=== PATIENT | male | born 1965 | race Two or more races ===

== ENCOUNTER 2016-09-01 20:04 | Observation (INO) | payer OTHER ==
[2016-09-01] MEDS ORDERED: NS 1,000 ML IV ONE (20:22)
--- NOTE | 2016-09-01 20:25 | EDPHY ---
H & P HPI/ROS: HPI CHIEF COMPLAINT: Left arm weakness, left leg weakness x6 days HISTORY OF PRESENT ILLNESS: This patient very pleasant 51-year-old male, significant past medical history for hypertension, originally from [facility] but now lives locally in [place] for approximately 6 days or starting on Thursday he noticed some left arm and left leg weakness. [place] the [place] airport and was noted to be dragging his left leg and having trouble with his left upper extremity. He fluid [facility] where he has been for the past 5 days with ongoing left upper extremity left lower extremity weakness. He was seen at [facility] today. Patient now presents by private vehicle with his family at bedside for ongoing left upper extremity weakness and left lower extremity weakness. Family reports that is left upper extremity left lower extremity weakness is about an about the same, not new. His son is at bedside for interpretation. Patient does not speak much Sierra Leonean. Past Medical History: Hypertension Past Surgical History: No surgical history Social History: Denies daily use drugs alcohol tobacco products Family History: Noncontributory ROS REVIEW OF SYSTEMS: A comprehensive 10 point review of systems is otherwise negative aside from elements mentioned in the history of present illness. Exam Constitutional appears well nontoxic triage nursing summary reviewed, vital signs reviewed, awake/alert. Eyes normal conjunctivae and sclera, EOMI, PERRLA. HENT normal inspection, atraumatic, moist mucus membranes, no epistaxis, neck supple/ no meningismus, no raccoon eyes. Respiratory clear to auscultation bilaterally, normal breath sounds, no respiratory distress, no wheezing. Cardiovascular rate normal, regular rhythm, no murmur, no edema, distal pulses normal. Gastrointestinal soft, non-tender, no rebound, no guarding, normal bowel sounds, no distension, no pulsatile mass. Genitourinary no CVA tenderness. Musculoskeletal no midline vertebral tenderness, full range of motion, no calf swelling, no tenderness of extremities, no meningismus, good pulses, neurovascularly intact. Skin pink, warm, & dry, no rash, skin atraumatic. Neurologic noted to be weak of the left upper extremity and left lower extremity, easily breaks with resistance of the left upper extremity left lower extremity. awake, alert and oriented x 3, AAOx3, motor intact, sensory intact, CN II-XII intact, normal cerebellar, normal vision, normal speech. Psychiatric normal mood/affect. Heme/Lymph/Immune no lymphadenopathy. Differential Diagnosis: Includes but is not limited to in a particular order acute stroke, stroke 6 days ago, hypertensive urgency, hypertensive emergency, brain bleed Medical Decision Making: Plan for this patient IV establishment, full blood work, choke reamer, EKG, troponin, CT head without contrast for stroke. This patient does have a left upper extremity left lower extremity weakness. However to 6-day-old. He is not a tPA candidate as he is outside the window. Re-evaluation: EKG interpretation by me on record in [employer] system. Impression time of EKG 2016 sinus rhythm. Sinus rhythm rate of 76, no acute ischemia. Normal intervals. CT scan of the head without IV contrast. The results of the study are this shows brain tumor . The study was read by Dr. Nolasco I viewed the images myself on the PACS system 2111: Spoke with Dr. Gongora: Neurosurgery. Recommends getting an MRI with and without contrast. Recommends IV Keppra, Admission. Further workup and will consult on tomorrow. 2213: Re-evaluation at this time patient is an MRI. I spoke with Dr. Mann agrees to admit this patient. Patient be admitted to neuro bed. Neurosurgery consult. They did want Keppra. Source: Patient, Family Constitutional: Initial Vital Signs Temperature (C) 36.7 C 09/01/16 20:20 Heart Rate 80 09/01/16 20:20 Respiratory Rate 16 09/01/16 20:20 Blood Pressure 163/101 H 09/01/16 20:20 O2 Sat (%) 93 09/01/16 20:20 O2 Delivery Mode Room Air Allergies/Adverse Reactions: No Known Allergies Allergy (Verified 09/01/16 20:36) Home Medications: Medication Instructions Recorded Acetaminophen [Tylenol 325mg (*)] 650 mg PO Q4HRS PRN #0 tab 09/02/16 Dexamethasone [Decadron 4 MG (*)] 4 mg PO Q6HRS #60 tab 09/02/16 Ondansetron Odt [Zofran Odt 4 mg 4 mg PO Q4HRS PRN #20 tab 09/02/16 (*)] levETIRAcetam [Keppra 500 mg (*)] 750 mg PO BID #60 tab 09/02/16 Medical Decision Making - Data Points Laboratory Results: Laboratory Results 09/01/16 20:20 09/01/16 20:20 09/01/16 20:16 POC Hgb 17.3 gm/dL gm/dL (13.7-17.5) POC Hct 51 % % (40-51) POC Sodium 138 mEq/L mEq/L (134-144) POC Potassium 3.9 mEq/L mEq/L (3.3-5.0) POC Chloride 101 mEq/L mEq/L (97-110) POC BUN 14 mg/dL mg/dL (7-23) POC Creatinine 0.8 mg/dL mg/dL (0.7-1.3) POC Glucose 118 mg/dL H mg/dL (70-100) Medications Given: Discontinued Medications Dexamethasone (Decadron Injection) 10 mg IVP ONCE ONE Stop: 09/01/16 23:28 Last Admin: 09/02/16 00:33 Dose: 10 mg Dexamethasone (Decadron) 4 mg PO Q6HRS [facility] Stop: 03/01/17 00:00 Last Admin: 09/02/16 11:27 Dose: 4 mg Sodium Chloride (Ns) 1,000 mls @ 0 mls/hr IV ONCE ONE; Wide Open PRN Reason: Protocol Stop: 09/01/16 20:23 Last Admin: 09/01/16 20:43 Dose: 1,000 mls Levetiracetam 1,000 mg/ Sodium (Chloride) 110 mls @ 440 mls/hr IV EDNOW ONE Stop: 09/01/16 21:24 Last Admin: 09/01/16 22:48 Dose: 110 mls Levetiracetam (Keppra) 750 mg PO BID [facility] Stop: 03/01/17 08:59 Last Admin: 09/02/16 08:21 Dose: 750 mg Point of Care Test Results: 09/01/16 20:16 POC Sodium 138 POC Potassium 3.9 POC Chloride 101 POC BUN 14 POC Creatinine 0.8 POC Glucose 118 H Departure - Departure Disposition: [facility] Acute Clinical Impression: Brain tumor Condition: Fair
[2016-09-01 20:30] LABS: % IMMATURE GRANULYOCYTES 0.2 % (0.0-1.1); ABSOLUTE IMMATURE GRANULOCYTES 0.02 10^3/uL (0.00-0.10); ADD DIFF? NO; ADD MORPH? NO; ADD SCAN? NO; ATYPICAL LYMPHOCYTE FLAG 0 (0-99); FRAGMENT RBC FLAG 0 (0-99); HEMATOCRIT 47.3 % (40.0-51.0); HEMOGLOBIN 16.3 g/dL (13.7-17.5); LEFT SHIFT FLG 0 (0-99); LIPEMIA HEMOLYSIS FLAG 90 (0-99); MEAN CELL HEMOGLOBIN 30.1 pg (27.9-34.1); MEAN CELL HEMOGLOBIN CONCENTR. 34.5 g/dL (32.4-36.7); MEAN CELL VOLUME 87.4 fL (81.5-99.8); MEAN PLATELET VOLUME 9.8 fL (8.7-11.7); PLATELET CLUMPS FLAG 30 (0-99); PLATELET COUNT 288 10^3/uL (150-400); RED BLOOD CELL COUNT 5.41 10^6/uL (4.40-6.38); RED CELL DISTRIBUTION WIDTH 13.4 % (11.5-15.2)
[2016-09-01 20:39] LABS: PROTIME(PATIENT) 13.1 SEC (12.0-15.0)
[2016-09-01 20:40] LABS: APTT 34.6 SEC (23.0-38.0)
[2016-09-01 20:43] LABS: ANION GAP 13 mEq/L (8-16); CALCIUM 9.3 mg/dL (8.5-10.4); CARBON DIOXIDE 21 mEq/l (22-31); CHLORIDE 104 mEq/L (97-110); CREATININE 0.8 mg/dL (0.7-1.3); GLOMERULAR FILTRATION RATE > 60; GLUCOSE 116 mg/dL (70-100); SODIUM 138 mEq/L (134-144)
[2016-09-01 20:54] LABS: TROPONIN I < 0.012 ng/mL (0-0.034)
[2016-09-01] MEDS ORDERED: levETIRAcetam 1,000 MG in NS 100 ML IV ONE (21:10)
[2016-09-01] MEDS ORDERED: GADOBUTROL 10 ML VIAL IVP ONE (21:31)
[2016-09-01] MEDS ORDERED: ONDANSETRON DISINTEGRATING 4 MG TAB PO PRN (22:19)
[2016-09-01] MEDS ORDERED: ACETAMINOPHEN 325 MG TAB PO PRN (22:19)
[2016-09-01] MEDS ORDERED: ONDANSETRON 4 MG/2 ML VIAL IVP PRN (22:19)
[2016-09-01] MEDS ORDERED: DEXAMETHASONE 10 MG/ML VIAL IVP ONE (23:27)
--- NOTE | 2016-09-01 23:41 | GHP ---
[f rep st] HISTORY AND PHYSICAL DATE OF ADMISSION: 09/01/2016 CHIEF COMPLAINT: Weakness, brain lesions. HISTORY OF PRESENT ILLNESS: The patient is a pleasant 51-year-old Italian- speaking male with hypertension presents with left arm and leg weakness for approximately 6 days. History is translated from his [id number], per his permission. He is originally from [facility] but lives in [place] with son. About 6 days ago, he was returning from [facility] when he noticed his left leg was dragging at the airport and difficulty lifting his left arm. This weakness has progressed, without any falls. No slurred speech or numbness/loss of sensation. Denies vision changes. Has lost a few pounds in the last week. No numbness or tingling. Had a posterior headache today which is new for him. REVIEW OF SYSTEMS: I completed a 10-point review of systems, negative except as noted in HPI. PAST MEDICAL HISTORY: Hypertension, tobacco use. PAST SURGICAL HISTORY: None. SOCIAL HISTORY: Smoked half a pack of cigarettes daily for 15 years. Drinks a beer daily. No illicits. Lives with his son and [id number] in [place], applying for a [employer] card. FAMILY HISTORY: Father has diabetes. MEDICATIONS: see medication reconciliation. ALLERGIES: None. PHYSICAL EXAM: VITAL SIGNS: Temperature 36.7, blood pressure 144/83, heart rate 70s, respirations 16, 93% on room air (initially blood pressure 163/101). GENERAL: Patient is lying in bed, in no acute distress. HEENT: PERRLA, EOMI. Oropharynx clear. CV: Regular rate and rhythm. No murmurs, gallops, or rubs. LUNGS: Clear to auscultation bilaterally. ABDOMEN: Soft, nontender, nondistended. Positive bowel sounds. : No suprapubic or CVA tenderness. MUSCULOSKELETAL: Weak left upper and lower extremity. NEUROLOGIC: 2 through 12 intact. Upgoing toes. +2 patellar reflex on the right, +1 on the left. PSYCHIATRIC: Alert and oriented x3. Very pleasant. IMAGING: EKG, personally reviewed by me: Normal sinus rhythm. CT scan, reviewed by me: Shows a right occipital lobe mass with prominent peritumoral edema and mass effect, with subfalcine herniation. MRI brain: Multiple ring-enhancing nodule areas are identified with central diminished signal intensity suggesting central necrosis. This is consistent with multifocal malignancy such as glioblastoma. Multiple unilateral metastatic foci appear much likely. The lesions are nearly contiguous, with significant mass effect and peritumoral edema. Mass effect with approximately 8 mm of [id number] shift of the midline. ASSESSMENT AND PLAN: 1. Multiple brain lesions: concern for primary malignancy such as glioblastoma. Dr. Paige spoke with Dr. Gongora and Neurosurgery will evaluate in the morning. Start seizure prophylaxis with Keppra and steroids for peritumoral edema. PT/OT. 2. Accelerated hypertension: Now normalized. Resume home medications. 3. Diet: Regular. 4. Deep venous thrombosis prophylaxis: Sequential compression devices. DISPOSITION: Patient warrants inpatient admission given acute left upper and lower extremity weakness. Requires NSGY evaluation. /[id number]/MODL MTDD
[2016-09-02] MEDS: DEXAMETHASONE 4 MG TAB PO SCH ×3 (00:42→11:27)
[2016-09-02 01:28] LABS: ALBUMIN 4.6 g/dL (3.5-5.0); BILIRUBIN,TOTAL 0.8 mg/dL (0.1-1.4); BILIRUBIN-CONJUGATED 0.5 mg/dL (0.0-0.5); BILIRUBIN-UNCONJUGATED 0.3 mg/dL (0.0-1.1); TOTAL PROTEIN 7.9 g/dL (6.3-8.2)
[2016-09-02 04:27] VITALS: RESP 92
[2016-09-02 07:24] VITALS: TEMP 98.3
[2016-09-02] MEDS ORDERED: LOSARTAN POTASSIUM 50 MG TAB PO SCH (09:00)
[2016-09-02] MEDS ORDERED: AMLODIPINE PO SCH (09:00)
[2016-09-02] MEDS ORDERED: levETIRAcetam 500 MG TAB PO SCH (09:00)
[2016-09-02] MEDS ORDERED: amLODIPine BESYLATE 5 MG TAB PO SCH (09:00)
[2016-09-02] MEDS ORDERED: LOSARTAN PO SCH (09:00)
--- NOTE | 2016-09-02 09:57 | GCON ---
[f rep st] CONSULTATION NEUROSURGERY CONSULTATION CHIEF COMPLAINT: Worsening left-sided weakness. HISTORY OF PRESENT ILLNESS: This is a 51-year-old male Lebanese male, who is recently back from a trip to [facility] when he started having worsening left-sided weakness over the last week. He speaks some French but most of my consultation was done through the help of his son translating. His son states that in the airport he was dragging his left foot and having some intermittent numbness and weakness in his left arm, as well. Patient states that he has also had some intermittent headaches as well as some blurry vision. Patient states that he also has had some blurred vision at times. His son states that he also noticed that there were some episodes of speech that did not make sense in context but were fluent. He has no history of any previous cancers or other tumors. The patient was just recently started on blood pressure medication but before that was not on any other medications. Neurosurgery was consulted after a CT scan showed at least 2 right sided occipital/parietal tumors causing edema and some shift of the brain. REVIEW OF SYSTEMS: All pertinent positive and negative review of systems are as stated in the HPI. All history obtained through translation by the son and by review of the electronic medical record due to language barrier. PAST MEDICAL HISTORY: Significant for hypertension and tobacco use. PAST SURGICAL HISTORY: Patient has no surgical history. SOCIAL HISTORY: Patient smoked a half pack of cigarettes for 15 years. He drinks a beer daily. He denies any other illicit drug use. He lives with his son and [id number]-htr in [place]. FAMILY HISTORY: His father has diabetes but is alive and well. No other family history of any brain tumors or other cancers that they know of. MEDICATIONS: Please see the medication reconciliation report. ALLERGIES: Patient has no known drug allergies. OBJECTIVE: VITAL SIGNS: Blood pressure 104/72, respiratory rate 14, O2 sat is 93% on room air, temperature is 36.8 degrees Celsius. CONSTITUTIONAL: Patient is alert and oriented x3, in no acute distress. He is well developed and well nourished. HEENT: Head is normocephalic, atraumatic. Eyes: Pupils are equal and react to light and accommodation. Extraocular muscles are intact. NECK: Supple with full range of motion. RESPIRATORY: Patient has normal work of breathing. NEUROLOGIC: Cranial nerves 2-12 are grossly intact. Tongue protrusion is midline. Palate rises symmetrically. Facial sensation is intact to light touch over the face, and there is no facial droop. Patient is conversing appropriately through his son who is translating for him and states that there are no speech problems. There is negative pronator drift. Bilateral upper extremities and lower extremities on my exam today are 5/5 and equal in strength in all muscle groups including deltoids, biceps, triceps, wrist extensors, flexors, interossei and histology manager, quadriceps, hamstrings, dorsiflexion, plantar flexion, and EHL. Sensation is intact to normal distribution throughout the body. ABDOMEN: There is no guarding. EXTREMITIES : There is no cyanosis or edema noted. Gait is not witnessed. Deep tendon reflexes are 2+ bilaterally in the patellar and biceps, brachioradialis, and Achilles. Exam is negative for clonus and Bond's. On Babinski, toes are downgoing. LABORATORY DATA: White blood cell count 8.35, red blood cell count 5.41, hemoglobin 16.3, hematocrit 47.3, platelets 288. INR 1.0, PT 13.1, APTT 34.6. Sodium is 138, potassium 4.0, chloride 104, anion gap 13, BUN 15, creatinine 0.8 , glucose 116. Troponin less than 0.12. DIAGNOSTIC IMAGING: A head CT was performed on September 01 that showed a right occipital lobe mass with associated prominent peritumoral edema and mass effect with subfalcine herniation noted. There is possible 2nd lesion in the area of the right thalamus. Differential would be multifocal primary brain malignancy versus metastatic disease. MRI would be helpful in further assessment. MRI of the brain was performed and shows: 1) Multiple ring-enhancing nodular areas identified with central diminished signal intensity suggesting central necrosis. The appearance is most consistent with multifocal malignancy such as glioblastoma. Multiple unilateral metastatic foci appear much less likely. The patient is not septic, and multiple abscesses seem very unlikely. 2) Mass effect and subfalcine herniation noted, as detailed above. Chest x-ray was performed and is negative for mass or lesion, shallow inspiration with basilar atelectasis is suspected. ASSESSMENT AND PLAN: This is a 51-year-old male with approximately a 1-week history of worsening left-sided weakness and possibly some vision changes, as well. MRI shows multiple right-sided occipital and parietal lesions suspicious for glioblastoma or other primary brain malignancy or metastases. At this time , we will obtain a CT of the chest, abdomen, and pelvis for further metastatic workup. Dr. Gongora also met with the patient and his family this morning and discussed at length the options at this time including a needle biopsy versus open biopsy with debulking and resection versus medical treatment with oncology. At this time, we are favoring an open biopsy/debulking of the right parietal lesion that is closest to the surface. We will use this for pathology to confirm what this tumor is and any treatment recommendations thereafter. Dr. Gongora discussed with the family at length the risk of possible neurological deficit, risk of stroke, bleeding,worsening symptoms, weakness, infection, and other permanent neurological deficits. The patient's family would like to return home and possibly come back for the surgery. I did explain to them that we would like to get as much workup as we can done while they are here prior to returning home, and will revisit going home after the CT of the chest, abdomen, and pelvis has been performed. If we did proceed with this surgery, it would most likely happen with Dr. Gongora this coming Thursday. For now, the patient may have a regular diet. He may be up with assistance as tolerated. We will obtain a CT of the chest, abdomen, and pelvis with contrast for further metastatic workup. We will continue the Decadron and Keppra for seizure prophylaxis and also for surrounding edema. Should there be any change in his neuromotor exam, please contact Neurosurgery. We will follow up with results of further imaging later today and proceed with plans for possible surgery later this week after further workup has been obtained. Thank you for this kind consultation. NEUROSURGERY ATTENDING NOTE I have met with the family and reviewed his images. He has a small lytic lesion in his pelvis with recommendation for MRI/bone scan. This would not change our current plan. 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 I have reviewed the films and plan with him and his son extensively today and discussed the plan with my partners. The plan is to proceed with a right parietal open biopsy and tumor debulking to obtain tissue diagnosis. They want to go home and have been cleared by Medicine for surgery. I have tentatively scheduled him for surgery in 3 days. He will be discharged home on dexamethasone and Keppra. They understand the risks of surgery (neurologic deficit, stroke, etc) and agree to proceed. Consents have been signed. His son Lee is the point of contact since the patient does not speak French ([phone] pgbs). /[id number]/MODL MTDD
[2016-09-02] MEDS ORDERED: IOPAMIDOL (ISOVUE-300) 100 ML BTL ONE (11:03)
--- NOTE | 2016-09-02 15:40 | PDDCSUM ---
Discharge Summary Discharge Summary: Dates of service 09/01-09/02/16 Discharge dx: # brain masses # cerebral edema # cerebral herniation # left arm/leg weakness Consultations: neurosurgery Procedures performed: Brain MRI, abd/chest CT Hospital course: 51 yo from [facility] presenting with left arm and leg weakness found to have multiple right sided brain lesions ? glioblastoma # brain masses: lesions in brain c/w malignancy vs less likely infection, appearance c/w glioblastoma. Plan for surgical resection. Abd/chest CT w/o clear other masses, though ? sacral lesion possibly c/w metastatic disease. After surgery patient will need f/u with oncology and should likely have screening colonoscopy as well. Started on empiric keppra for now # cerebral edema: with associated right to left shift, dc on dexamethasone, course to be determined per nsg # cerebrial herniation: as above # left arm/leg weakness: improving with steroids, cleared pt/ot DC home F/u Thursday for planned surgical intervention/tumor resection > 35 minutes spent in dc, more than half in coordination of care
[2016-09-02 16:10] VITALS: BP 143/82; PULSE 91; O2SAT 92
== END 2016-09-02 16:20 | disposition home or self-care (01) ==
LOC: INTOOBSV 22:13 → F2N 23:10
PROVIDERS: ADMIT Internal Medicine; ATTEND Internal Medicine
DX: G93.89 Other specified disorders of brain (principal); G93.6 Cerebral edema; G93.5 Compression of brain
CPT/HCPCS: 70450; 70553; 71010; 71260; 74177; 97161; G0378; 82947-QW; A9585; J1953; Q9967

== ENCOUNTER 2016-09-11 11:50 | Inpatient (IN) | payer OTHER ==
[~2016-09-11 11:50] MED LIST: BUPIVACAINE/EPI 0.25% 30 ML SDV ONE; GENTAMICIN SULFATE 80 MG/2 ML VIAL ONE; THROMBIN (BOVINE) 5,000 UNIT VIAL TP ONE
[2016-09-11] MEDS ORDERED: GADOBUTROL 10 ML VIAL IVP ONE (12:02)
[2016-09-11] MEDS ORDERED: LIDOCAINE 1% 2 ML INJ ONE (12:13)
[2016-09-11] MEDS ORDERED: ceFAZolin 2 GM/DEXTROSE 100 ML IV ONE (12:35)
[2016-09-11] MEDS ORDERED: PROPOFOL 200 MG/20 ML VIAL ONE (12:58)
[2016-09-11] MEDS ORDERED: ROCURONIUM 50 MG/5 ML VIAL ONE (13:00)
--- NOTE | 2016-09-11 13:25 | PDANEPAE ---
ANE History of Present Illness Craniotomy for brain tumor excision. Pt has headache, had blurry vision ANE Past Medical History - Cardiovascular History Hx Hypertension: Yes Hx Arrhythmias: No Hx Chest Pain: No Hx Coronary Artery / Peripheral Vascular Disease: No Hx CHF / Valvular Disease: No Hx Palpitations: No Cardiovascular History Comment: hx of htn not on meds currently. Patient reports he is now taking Amlodipine - Pulmonary History Hx COPD: No Hx Asthma/Reactive Airway Disease: No Hx Recent Upper Respiratory Infection: No Hx Oxygen in Use at Home: No Hx Sleep Apnea: No Sleep Apnea Screening Result - Last Documented: Positive Pulmonary History Comment: lele triggers. Patient smoked 2-3 cig/day x 5 years. stopped 1 year ago. - Neurologic History Hx Cerebrovascular Accident: No Hx Seizures: No Hx Dementia: No Neurologic History Comment: brain tumor currently. loss of vision on left side from tumor - Endocrine History Hx Diabetes: No - Renal History Hx Renal Disorders: No - Liver History Hx Hepatic Disorders: No - Neurological & Psychiatric Hx Hx Neurological and Psychiatric Disorders: No - Cancer History Hx Cancer: No - Congenital Disorder History Hx Congenital Disorders: No - GI History Hx Gastrointestinal Disorders: No - Other Health History Other Health History: none - Chronic Pain History Chronic Pain: Yes (headaches) - Surgical History Prior Surgeries: na ANE Review of Systems - Exercise capacity METS (RN): 4 METS ANE Patient History - Allergies Allergies/Adverse Reactions: No Known Allergies Allergy (Verified 09/01/16 20:36) - NPO status NPO Since - Liquids (Date): 09/11/16 NPO Since - Liquids (Time): 09:00 NPO Since - Solids (Date): 09/10/16 NPO Since - Solids (Time): 23:30 - Anes Hx Hx Anesthesia Complications (with details): No prior surgeries - Smoking Hx Smoking Status: Former smoker - Alcohol Use Alcohol Use: Occasionally (1 drink/week) - Family Anes Hx Family Anes Hx: neg - N/A Family Hx Anesthesia Complications: none ANE Labs/Vital Signs - Vital Signs Blood Pressure: 152/95 Heart Rate: 66 Respiratory Rate: 18 O2 Sat (%): 93 Height: 172.72 cm Weight: 73.4 kg ANE Physical Exam - Airway Neck exam: FROM Mallampati Score: Class 2 Mouth exam: normal dental/mouth exam - Pulmonary Pulmonary: clear to auscultation - ASA Status ASA Status: III ANE Anesthesia Plan Anesthesia Plan: general endotracheal anesthesia Lines/Monitors: arterial line
[2016-09-11] MEDS ORDERED: BACITRACIN 50,000 UNITS/10 ML SYR IRR ONE (13:35)
[2016-09-11] MEDS ORDERED: MIDAZOLAM 2 MG/2 ML VIAL IVP ONE (13:42)
[2016-09-11] MEDS ORDERED: THROMBIN (BOVINE) 5,000 UNIT VIAL TP ONE (14:00)
[2016-09-11] MEDS ORDERED: DEXAMETHASONE 4 MG/ML VIAL ONE ×3 (14:27)
[2016-09-11] MEDS ORDERED: levETIRAcetam 1,000 MG in NS 100 ML IV ONE (15:00)
[2016-09-11] MEDS ORDERED: MANNITOL 20% 100 GM/500 ML BAG IV ONE (15:17)
[2016-09-11 16:40] LABS: BASE EXCESS -4.5 mEq/L (-2.5-2.5); BICARBONATE 20 mEq/L (22-26); HEMOGLOBIN ABG 15.8 gm/dL (14.5-17.3); IONIZED CALCIUM 1.03 MMOL/L (1.12-1.30); MEASURED OXYGEN SATURATION 98 % (92-95); PCO2 35 mmHg (34-38); PO2 127 mmHg (65-75); SODIUM ABG 125 mEq/L (137-146); TCO2 21 mEq/L (23-27)
[2016-09-11 16:42] LABS: O2 CONCENTRATIION 50 % (0-100); P/F RATIO 254 RATIO
[2016-09-11] MEDS ORDERED: GENTAMICIN SULFATE 80 MG/2 ML VIAL ONE (17:24)
[2016-09-11 17:43] LABS: ANION GAP 10 mEq/L (8-16); CALCIUM 7.8 mg/dL (8.5-10.4); CARBON DIOXIDE 19 mEq/l (22-31); CHLORIDE 99 mEq/L (97-110); CREATININE 0.8 mg/dL (0.7-1.3); GLOMERULAR FILTRATION RATE > 60; GLUCOSE 129 mg/dL (70-100); POTASSIUM 5.5 mEq/L (3.5-5.2); SODIUM 128 mEq/L (134-144)
[2016-09-11] MEDS ORDERED: ONDANSETRON 4 MG/2 ML VIAL ONE (18:05)
[2016-09-11] MEDS ORDERED: LABETALOL HCL 5 MG/ML 20 ML MDV ONE (18:46)
[2016-09-11] MEDS: fentaNYL 100 MCG/2 ML INJ IVP PRN ×2 (19:05→19:15)
[2016-09-11] MEDS ORDERED: NALOXONE HCL 0.4 MG/ML INJ IVP PRN (19:10)
[2016-09-11] MEDS ORDERED: ONDANSETRON 4 MG/2 ML VIAL IVP PRN (19:10)
[2016-09-11] MEDS ORDERED: LABETALOL HCL 50 MG/10 ML SYR IVP PRN (19:10)
[2016-09-11] MEDS ORDERED: fentaNYL 100 MCG/2 ML INJ ONE (19:11)
--- NOTE | 2016-09-11 19:11 | POSTANESTH ---
Post Anesthetic Evaluation Cardiovascular Status: Similar to Pre-Op Cond Respiratory Status: Normal, Stable Level of Consciousness/Mental Status: Can Participate in Eval Pain Control: Adequate, Prn Tx Ordered Nausea/Vomiting Control: Adequate, Prn Tx Ordered Complications Possibly Related to Anesthesia: None Noted
[2016-09-11] MEDS ORDERED: ACETAMINOPHEN 325 MG TAB PO PRN (19:12)
--- NOTE | 2016-09-11 19:12 | POSTOPPROG ---
Post Op Note Date of Operation: 09/11/16 Surgeon: Tyree Lee Beekeeper Farmer: Madelyn Martinez, SAMEER Anesthesia: GET(General Endotracheal) Pre-op Diagnosis: right parietal brain tumor Post-op Diagnosis: same Indication: brain tumor Procedure: right parietal craniotomy for tumor resection with motor mapping Findings: successful brain tumor resection Inf/Abcess present in the surg proc area at time of surgery?: No EBL: 50-100 Complications: none Drains: Nba Steele
[2016-09-11] MEDS ORDERED: LACTULOSE 20 GM/30 ML UDCUP PO PRN (19:13)
[2016-09-11] MEDS ORDERED: MAGNESIUM HYDROXIDE 30 ML UDCUP PO PRN (19:13)
[2016-09-11] MEDS ORDERED: POLYETHYLENE GLYCOL 3350 17 GM PKT PO PRN (19:13)
[2016-09-11] MEDS ORDERED: MAG HYDROX/AL HYDROX/SIMETH 30 ML UDCUP PO PRN (19:13)
[2016-09-11] MEDS ORDERED: BISACODYL 10 MG SUPP PR PRN (19:13)
--- NOTE | 2016-09-11 19:23 | SOAPPROG ---
SOAP Progress Note Assessment/Plan: Assessment: POD#0 s/p right parietal crani for tumor resection Plan: - SBP < 140 overnight - ICU observation with q2h neuro checks - decadron taper over 7 days - MRI with contrast in AM - Keppra 750 BID - PT/OT/speech 09/11/16 19:20 Subjective: no current complaints Objective: Vital Signs Temp Pulse Resp BP Pulse Ox 36.7 C 66 12 132/94 H 99 09/11/16 12:23 09/11/16 13:41 09/11/16 19:11 09/11/16 19:10 09/11/16 19:11 Laboratory Results 09/11/16 17:15 AAOx3, speech clear and fluent (self pay representative) Right strength 5/5, left arm grossly 5/5 but prominent pronator drift sensation seems to be grossly intact - Pending Discharge Pending Discharge Within 24 Hours: No Pending Discharge Within 48 Hours: Yes Pending Discharge Date: 09/13/16 Pending Discharge Time: 11:00 ICD10 Worksheet Patient Problems: Problems Problem Status Onset Brain tumor Acute
[2016-09-11] MEDS: NS W/ 20 KCl/L 1,000 ML IV SCH (20:34)
[2016-09-11] MEDS: SENNOSIDES/DOCUSATE SODIUM TAB PO SCH (22:00)
[2016-09-11] MEDS: FAMOTIDINE 20 MG TAB PO SCH (22:00)
[2016-09-11] MEDS: levETIRAcetam 500 MG TAB PO SCH (22:00)
[2016-09-11] MEDS: HYDROCODONE/APAP 10/325 TAB PO PRN (22:27)
[2016-09-12] MEDS: DEXAMETHASONE 4 MG TAB PO SCH ×5 (00:54→18:09)
[2016-09-12 05:01] LABS: ANION GAP 11 mEq/L (8-16); CALCIUM 7.7 mg/dL (8.5-10.4); CARBON DIOXIDE 16 mEq/l (22-31); CHLORIDE 105 mEq/L (97-110); CREATININE 0.8 mg/dL (0.7-1.3); GLOMERULAR FILTRATION RATE > 60; GLUCOSE 143 mg/dL (70-100); POTASSIUM 5.1 mEq/L (3.5-5.2); SODIUM 132 mEq/L (134-144)
[2016-09-12 05:05] LABS: ADD DIFF? YES; ADD MORPH? NO; ADD SCAN? NO; ATYPICAL LYMPHOCYTE FLAG 0 (0-99); FRAGMENT RBC FLAG 10 (0-99); HEMATOCRIT 43.3 % (40.0-51.0); LEFT SHIFT FLG 30 (0-99); LIPEMIA HEMOLYSIS FLAG 90 (0-99); MEAN CELL HEMOGLOBIN 30.2 pg (27.9-34.1); MEAN CELL HEMOGLOBIN CONCENTR. 34.6 g/dL (32.4-36.7); MEAN CELL VOLUME 87.1 fL (81.5-99.8); MEAN PLATELET VOLUME 9.4 fL (8.7-11.7); PLATELET CLUMPS FLAG 20 (0-99); PLATELET COUNT 264 10^3/uL (150-400); RED BLOOD CELL COUNT 4.97 10^6/uL (4.40-6.38); RED CELL DISTRIBUTION WIDTH 13.4 % (11.5-15.2)
[2016-09-12 06:07] LABS: PLATELET ESTIMATE ADEQUATE (ADEQ)
--- NOTE | 2016-09-12 07:25 | SOAPPROG ---
SOAP Progress Note Assessment/Plan: Assessment: 51 yo male POD #1 s/p right parietal craniotomy for tumor resection with motor mapping doing well this AM. ongoing left arm weakness Plan: MRI brain this AM follow pathology PT/OT/ST Will keep LIZA in this AM and if output slows, will consider removing it later today. Plan for 7 day decadron taper. He is on 4Q6 currently, will go to 4Q8 tomorrow. Discussed with Dr. Lee. 09/12/16 07:22 09/12/16 07:30 09/12/16 07:31 Subjective: awake, alert, comfortable. Objective: Vital Signs Temp Pulse Resp BP Pulse Ox 36.6 C 68 12 126/84 H 96 09/11/16 19:45 09/12/16 06:00 09/12/16 06:00 09/12/16 06:00 09/12/16 06:00 Laboratory Results 09/12/16 04:25 09/12/16 04:25 09/11/16 09/12/16 09/13/16 05:59 05:59 05:59 Intake Total 2810 Output Total 2015 Balance 795 Neuro: A+Ox4 RUCKER to command PERRLA, speech clear left arm + Pronator drift and generalized weakness RUE and bilat LE have normal strength Dressing: CDI LIZA: 265ml ICD10 Worksheet Patient Problems: Problems Problem Status Onset Brain tumor Acute
[2016-09-12] MEDS ORDERED: *MD ORDERING ONLY-DEXAMETHASONE TAPER PO SCH (07:45)
[2016-09-12] MEDS: NS W/ 20 KCl/L 1,000 ML IV SCH (08:07)
[2016-09-12] MEDS: SENNOSIDES/DOCUSATE SODIUM TAB PO SCH ×2 (08:19→20:39)
[2016-09-12] MEDS: levETIRAcetam 500 MG TAB PO SCH ×2 (08:19→20:39)
[2016-09-12] MEDS: FAMOTIDINE 20 MG TAB PO SCH ×2 (08:19→20:39)
[2016-09-12] MEDS: HYDROCODONE/APAP 10/325 TAB PO PRN (10:17)
--- NOTE | 2016-09-12 10:24 | GOP ---
[f rep st] OPERATIVE REPORT DATE OF OPERATION: 09/11/2016 SURGEON: Tyree Lee MD NEUROSURGEON: Tyree Lee MD. FORMING DEPARTMENT END FINDER: SAMEER Whatley. ANESTHESIA: General endotracheal. 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 POSTOPERATIVE DIAGNOSIS: Intra-axial right parietal brain mass with multifocal distribution and ext ensive brain edema. PROCEDURE PERFORMED: 1. Right frontoparietal craniotomy. 2. Microsurgical gross total resection of posterior right parietal and anterior right parietal sepa rate intraparenchymal brain masses. 3. Use of Stealth stereotactic neuronavigation for volumetric gross total resection. 4. Use of the operative microscope. 5. Intraoperative motor mapping using strip electrode phase reversal as well as motor evoked potent ial stimulation. FINDINGS: Successful tumor resection. SPECIMENS: Right parietal brain masses. ESTIMATED BLOOD LOSS: 100 cc. INDICATIONS: The patient is a 51-year-old man from [facility] who presented about a week and half ago wi th significant left arm drift and some trouble walking over the past month. Scans revealed what mirta eared to be a multifocal contrast enhancing mass in the right parietal region involving the motor st rip of the posterior frontal lobe. He was seen by my partner, and was then scheduled for surgery wi th me today. We did consider doing awake craniotomy for motor mapping, but given that the patient d oes not speak Hungarian, this would be extremely complicated and probably not in the patient's best in [facility]. Therefore, we decided to do it with asleep motor mapping. DESCRIPTION OF PROCEDURE: After informed consent was obtained from the patient, the patient was bro ught to the operating room and was placed in supine position on the operating table. A formal time- out was performed, identifying the patient by name, medical record number, and date of . Preop erative antibiotics were given. The endotracheal tube was placed and general endotracheal anesthesi a was smoothly induced. The patient was given preoperative mannitol, Decadron, and Keppra. All mirta ropriate monitoring lines were placed by Anesthesia and all appropriate leads for the neurophysiolog ic monitoring and motor mapping were placed. Next, the patient's head was placed in the Pardo pins and turned toward the left side, exposing t he right parietal region. The Stealth was then registered to the scalp and checked for accuracy usi ng known surface landmarks. This was used to plan an upside-down U-shaped incision starting just an terior to the ear and extending into the occipital region. The hair was clipped and 20 cc of 0.25% Marcaine with epinephrine were infiltrated in the skin for hemostasis. The head was then prepped an d draped in the normal sterile fashion. Skin incision was made using a 10 blade. The subcutaneous tissues were dissected using monopolar el ectrocautery. Magdy clips were placed for hemostasis. The temporalis muscle was elevated slightly more superiorly and a single myocutaneous flap was retracted inferiorly. The Stealth was used to lo calize both tumors to be sure that we would have enough space around the craniotomy for both the mot or mapping and tumor resection. Once this was localized, 4 bur holes were placed using the perforat or and these were connected using the craniotome to form a roughly 5 x 10 cm oval shaped craniotomy covering the entire region. All bleeding was controlled with bipolar electrocautery and Gelfoam. A t this point, we decided to remove the posterior tumor first. The dura was opened in a cruciate fas hion over this tumor, and the area where it came to the surface was localized using the Stealth. Th e brain did look somewhat abnormal and grayish in this area. The operative microscope was then margie lopez on the field, and the remainder of the procedure was performed under high-power magnification. First, the elsi and the cortex were coagulated using bipolar electrocautery over the area where the t umor came to the surface. Next, circumferential fashion we were able to go around the tumor, dissec ting it carefully away from the normal brain tissue beneath. The ultrasonic aspirator was used to d ebulk internally the tumor and carry this around the circumference of the cavity, being sure to loca lize all normal tissue. It was sent for frozen section. 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 We c ontinued resecting the tumor until the cavity showed all normal brain tissue surrounding. Then all bleeding was controlled with bipolar electrocautery and the cavity was lined with Surgicel. At this point, we turned our attention to the more anterior placed tumor. The remainder of the dura was op ened in a cruciate fashion. The area anterior to where the tumor came to the surface, a 6 contact s trip electrode was placed. Using neurophysiologic MEP signals, we were able to find phase reversal in the area anterior to where the tumor came to the surface. The strip electrode was moved several times, confirming the correct positioning of the motor cortex. We next used bipolar stimulation ove r the same areas again to confirm that good MEP signals were being obtained in the left arm and thes e were reproducible. Once the motor cortex was mapped, again the microscope was brought on the fiel d and again the elsi and cortex were coagulated around the area where the tumor came to the surface. We then carefully dissected the tumor away from the normal brain tissue, especially anteriorly wher e it coursed into the motor cortex. The ultrasonic aspirator was again used to debulk the tumor and remove the tumor completely. After tumor removal, the cavity was inspected and it appeared as thou gh we had a gross total resection. Again, the cavity was copiously irrigated. The bleeding was con trolled with bipolar electrocautery and the cavity was lined with Surgicel. We did then used the bi polar stimulator again to assure that the MEP signals that we had seen previously were still present and they were stable from baseline. At this point, it appeared as though we had a gross total tumor resection of both lesions. Therefor e, the wound was copiously irrigated using gentamicin irrigation. The dura was closed using interru pted 4-0 Vicryl. A piece of dry Gelfoam was placed over the dural opening and the craniotomy flap w as plated back in place using Synthes titanium plates and screws. The temporalis muscle was tacked back superiorly to the periosteum and a 10-Barbadian LIZA drain was placed in the subgaleal space. The w ound was again copiously irrigated using bacitracin irrigation. The galea was closed using interrup fritz 2-0 Vicryl. The skin was closed using a running 4-0 Monocryl. The hair was washed. Sterile dr essings were placed. The patient was removed from the [facility], where he was awakened and extu bated, and transferred to the PACU in stable condition. There were no operative complications. I w as scrubbed and present for the entire procedure. All sponge and needle counts were correct at the end of the case. FLUIDS AND URINE OUTPUT: Per the Anesthesia record. DRAIN: Subgaleal LIZA. /[id number]/MODL
[2016-09-12] MEDS ORDERED: GADOBUTROL 10 ML VIAL IVP ONE (10:46)
--- NOTE | 2016-09-12 15:20 | GCON ---
[f rep st] CONSULTATION COSMETOLOGY INSTRUCTOR CONSULTATION REASON FOR ADMISSION: Status post resection of brain tumor. HISTORY OF PRESENT ILLNESS: The patient is a 51-year-old male without past medical history. 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 He underwent right parietal craniotomy for tumor resection with motor mapping. Currently he is resting comfortably. He is not currently i n any pain, no chest pain, pleuritic-type chest pain, or angina equivalent. No fever or night sweat s. Again. He is currently comfortable. PAST MEDICAL HISTORY: None. PAST SURGICAL HISTORY: None. ALLERGIES: No known allergies to medication. SOCIAL HISTORY: Previous heavy smoker, quit 5 years prior. Infrequent alcohol use. He has [employer] family support. MEDICATIONS: Prior, include dexamethasone and Keppra. PHYSICAL EXAMINATION: VITAL SIGNS: Blood pressure 138/85, pulse 68, respirations 12, temperature 3 6.7, oxygen saturation 94% on room air. GENERAL: He is a well-developed, well-nourished 51-year-ol d male, who is resting comfortably, in no acute distress. HEENT: Head is bandaged. Eyes are PERRL , EOMI. Throat shows no erythema or tonsillar hypertrophy. NECK: Supple. No cervical adenopathy. HEART: Regular rate and rhythm without murmurs, rubs, or gallops. LUNGS: Clear to auscultation. No wheeze or rhonchi. ABDOMEN: Soft, nontender. Bowel sounds are present in all 4 quadrants. E XTREMITIES: No clubbing, cyanosis, or edema. LABORATORIES: White count is 20,000, hemoglobin 15, hematocrit 43, platelet count is 264. Sodium 1 32, potassium 5.1, chloride 105, CO2 16, BUN 29, creatinine 0.8, and glucose is 143. IMPRESSION: 1. Brain tumor. 2. Status post right parietal craniotomy for tumor resection. 3. Pain, well controlled. RECOMMENDATIONS: 1. Continue current Decadron taper. 2. DVT and PE prophylaxis. Holding anticoagulation for now. 3. Stress ulcer prophylaxis. 4. Adequate nutrition. 5. Adequate pain control. 6. PT and OT. 7. Speech to see. /[id number]/MODL
[2016-09-12] MEDS ORDERED: LABETALOL HCL 5 MG/ML 20 ML MDV IVP ONE (15:45)
[2016-09-12] MEDS ORDERED: LABETALOL HCL 5 MG/ML 20 ML MDV IVP PRN (15:46)
[2016-09-12] MEDS: LABETALOL HCL 5 MG/ML 20 ML MDV IVP PRN (20:40)
[2016-09-13] MEDS: DEXAMETHASONE 4 MG TAB PO SCH ×4 (00:55→21:01)
[2016-09-13] MEDS: HYDROCODONE/APAP 10/325 TAB PO PRN ×3 (05:21→21:01)
[2016-09-13] MEDS: LABETALOL HCL 5 MG/ML 20 ML MDV IVP PRN ×2 (05:22→10:12)
--- NOTE | 2016-09-13 09:23 | NEUSURGPN ---
Date of Surgery: 09/11/16 Post Op Day: 2 Assessment/Plan: Assessment/Plan: Assessment: 51 yo male POD #1 s/p right parietal craniotomy for tumor resection with motor mapping doing well this AM. ongoing left arm weakness [id number] 170 out yesterday Pt has large post operative epidural hematoma on repeat CT but exam is stable and doesn't appear to have any symptoms at this time. we will leave drain in at this and continue to watch closely, if he were to decline we would take to OR for evac of hematoma. Plan: follow pathology, pending PT/OT/ST Will keep LIZA for now. Plan for 7 day decadron taper. He is on 4Q6 currently, will go to 4Q8 tomorrow. Discussed with Dr. Lee. Subjective: awake, alert, comfortable. Neuro: A+Ox4 RUCKER to command PERRLA, speech clear left arm + Pronator drift and generalized weakness RUE and bilat LE have normal strength incision cdi - Physician Discussed Patient with : [facility] Physical Exam - Vitals, I&O, Labs I and O 09/12/16 09/13/16 09/14/16 05:59 05:59 05:59 Intake Total 2810 1829 Output Total 2014 1269 Balance 795 559 Weight 73.4 kg Intake: Oral (ml) 1000 1450 IV Intake (ml) 1100 379 IV Infused (ml) 710 NS W/ 20 KCl/L 1,000 ml @ 710 100 mls/hr IV CONT CHERISE Rx#:[id number] Output: Urine (ml) 1650 1100 Catheter 1650 Urinal 1100 Estimated Blood Loss (ml) 100 LIZA Drain Output (ml) 265 170 Head 265 170 Other: Number of Voids Toilet 1 Number of Stools Toilet 1 Vital Signs Temp Pulse Resp BP Pulse Ox 36.5 C 64 9 L 112/71 92 09/12/16 21:00 09/13/16 06:00 09/13/16 06:00 09/13/16 06:00 09/13/16 06:00 Laboratory Results 09/12/16 04:25 09/12/16 04:25 ICD10 Worksheet Patient Problems: Problems Problem Status Onset Brain tumor Acute
--- NOTE | 2016-09-13 09:23 | PDINTPN ---
Process Control Specialist Progress Note Assessment/Plan: Assessment: * Brain tumor * Status post craniotomy with resection-path pending * Pain-controlled Plan: CONCRETE HANDLER Likely transfer to floor soon Subjective: Sitting up in chair. Comfortable Objective: Vital Signs Temp Pulse Resp BP Pulse Ox 36.5 C 64 9 L 112/71 92 09/12/16 21:00 09/13/16 06:00 09/13/16 06:00 09/13/16 06:00 09/13/16 06:00 Laboratory Results 09/12/16 04:25 09/12/16 04:25 09/12/16 09/13/16 09/14/16 05:59 05:59 05:59 Intake Total 2809 1829 Output Total 2014 1269 Balance 795 559 Physical Exam - Physical Exam General Appearance: WD/WN, alert, no apparent distress EENT: PERRL/EOMI, normal ENT inspection Neck: non-tender, full range of motion, supple, normal inspection Respiratory: chest non-tender, lungs clear, normal breath sounds Cardiac/Chest: normal peripheral pulses, regular rate, rhythm Peripheral Pulses: 2+: carotid (R), carotid (L), femoral (R), femoral (L), dorsalis-pedis (R), dorsalis-pedis (L) Abdomen: normal bowel sounds, non-tender, soft Male Genitalia: deferred Rectal: deferred Skin: normal color, warm/dry Extremities: normal range of motion, non-tender, normal inspection, normal capillary refill ICD10 Worksheet Patient Problems: Problems Problem Status Onset Brain tumor Acute
[2016-09-13] MEDS: levETIRAcetam 500 MG TAB PO SCH ×2 (10:10→21:01)
[2016-09-13] MEDS: SENNOSIDES/DOCUSATE SODIUM TAB PO SCH ×2 (10:12→21:01)
[2016-09-13] MEDS: FAMOTIDINE 20 MG TAB PO SCH ×2 (10:12→21:01)
[2016-09-14] MEDS: LABETALOL HCL 5 MG/ML 20 ML MDV IVP PRN ×3 (00:12→06:00)
[2016-09-14] MEDS ORDERED: hydrALAZINE 20 MG/ML VIAL IVP PRN ×2 (06:13→06:49)
[2016-09-14] MEDS ORDERED: ONDANSETRON 4 MG/2 ML VIAL IVP PRN (06:14)
--- NOTE | 2016-09-14 08:11 | NEUSURGPN ---
<Srikanth Weiner R - Last Filed: 09/14/16 08:06> Date of Surgery: 09/11/16 Post Op Day: 3 Assessment/Plan: Assessment/Plan: Assessment: 51 yo male POD #3 s/p right parietal craniotomy for tumor resection with motor mapping doing well this AM. ongoing left arm weakness Pt has large post operative epidural hematoma on repeat CT. Exam remained stable until this am but has had increased headaches and nausea overnight and has worsening weakness on the left. Plan: Repeat CT this AM, likely to OR for evacuation of hematoma later today. NPO follow pathology, pending PT/OT/ST Plan for 7 day decadron taper. currently 4mg q[address] Lee. Subjective: awake, talking, increased headaches and nausea overnight Neuro: A+Ox4 RUCKER to command PERRLA, speech clear unable to lift left arm and left leg this am RUE and RLE have normal strength incision cdi JPx1 - Physician Discussed Patient with : [facility] Physical Exam - Vitals, I&O, Labs I and O 09/13/16 09/14/16 09/15/16 05:59 05:59 05:59 Intake Total 1829 750 Output Total 1270 540 Balance 559 210 Intake: Oral (ml) 1450 750 IV Intake (ml) 379 Output: Urine (ml) 1100 400 Urinal 1100 400 Emesis (ml) 100 LIZA Drain Output (ml) 170 40 Head 170 40 Other: Output Comment Urinal per family Number of Voids Incontinence 1 Toilet 1 3 1 Urinal 1 Number of Stools Toilet 1 1 Vital Signs Temp Pulse Resp BP Pulse Ox 36.7 C 62 16 151/85 H 96 09/14/16 07:30 09/14/16 07:30 09/14/16 07:30 09/14/16 07:30 09/14/16 07:30 Laboratory Results 09/12/16 04:25 09/12/16 04:25 ICD10 Worksheet Patient Problems: Problems Problem Status Onset Brain tumor Acute <Tyree Lee - Last Filed: 09/14/16 11:16> Assessment/Plan: STAFF ADDENDUM: Patient is clearly more lethargic today with headache and N/V with increased left sided weakness. Not sure if this could be just the postop vasogenic edema vs. the epidural hematoma which until now has seemed to be asymptomatic. I will take him to evacuate the epidural today and see if this will improve the exam. We also may need to increase his steroids for the short term. I discussed this with the patient and family and they agree to surgical evacuation. [facility] Physical Exam - Vitals, I&O, Labs I and O 09/13/16 09/14/16 09/15/16 05:59 05:59 05:59 Intake Total 1829 750 Output Total 1270 540 Balance 559 210 Intake: Oral (ml) 1450 750 IV Intake (ml) 379 Output: Urine (ml) 1100 400 Urinal 1100 400 Emesis (ml) 100 LIZA Drain Output (ml) 170 40 Head 170 40 Other: Output Comment Urinal per family Number of Voids Incontinence 1 Toilet 1 3 1 Urinal 1 Number of Stools Toilet 1 1 Vital Signs Temp Pulse Resp BP Pulse Ox 36.8 C 65 11 L 142/86 H 95 09/14/16 09:37 09/14/16 10:00 09/14/16 10:00 09/14/16 10:00 09/14/16 10:00 Laboratory Results 09/12/16 04:25 09/12/16 04:25
[2016-09-14] MEDS: FAMOTIDINE 20 MG TAB PO SCH ×2 (08:12→20:44)
[2016-09-14] MEDS: SENNOSIDES/DOCUSATE SODIUM TAB PO SCH ×2 (08:12→20:43)
[2016-09-14] MEDS: levETIRAcetam 500 MG TAB PO SCH ×2 (08:12→20:44)
--- NOTE | 2016-09-14 08:54 | PDINTPN ---
Senior Logistics Manager Progress Note Assessment/Plan: Assessment/Plan: * Brain tumor * Status post craniotomy with resection-path pending. New upper extremity weakness. -to OR today * Pain-controlled Subjective: Resting comfortably. New upper extremity weakness Objective: Vital Signs Temp Pulse Resp BP Pulse Ox 36.7 C 62 16 151/85 H 96 09/14/16 07:30 09/14/16 07:30 09/14/16 07:30 09/14/16 07:30 09/14/16 07:30 Laboratory Results 09/12/16 04:25 09/12/16 04:25 09/13/16 09/14/16 09/15/16 05:59 05:59 05:59 Intake Total 1829 750 Output Total 1270 540 Balance 559 210 Physical Exam - Physical Exam General Appearance: alert, no apparent distress EENT: PERRL/EOMI, normal ENT inspection, pharynx normal, TMs normal Neck: non-tender, full range of motion, supple, normal inspection Respiratory: chest non-tender, lungs clear, normal breath sounds Cardiac/Chest: normal peripheral pulses, regular rate, rhythm Peripheral Pulses: 2+: carotid (R), carotid (L), femoral (R), femoral (L), dorsalis-pedis (R), dorsalis-pedis (L) Abdomen: normal bowel sounds, non-tender, soft Male Genitalia: deferred Rectal: deferred Skin: normal color, warm/dry Neuro/Psych: alert ICD10 Worksheet Patient Problems: Problems Problem Status Onset Brain tumor Acute
[2016-09-14] MEDS ORDERED: DEXAMETHASONE 4 MG TAB PO SCH (09:00)
[2016-09-14] MEDS ORDERED: LIDO/EPI 1% **Not for Epidural 20 ML MDV ONE (09:47)
[2016-09-14] MEDS ORDERED: THROMBIN (BOVINE) 5,000 UNIT VIAL TP ONE (09:47)
[2016-09-14] MEDS ORDERED: BACITRACIN 50,000 UNITS/10 ML SYR IRR ONE ×2 (09:47→12:05)
[2016-09-14] MEDS ORDERED: ceFAZolin 2 GM/DEXTROSE 100 ML IV ONE ×2 (11:00→11:37)
[2016-09-14] MEDS ORDERED: THROMBIN (BOVINE) 20,000 UNIT VIAL TP ONE (11:01)
[2016-09-14] MEDS ORDERED: PROPOFOL 200 MG/20 ML VIAL ONE ×2 (11:02→11:58)
[2016-09-14] MEDS ORDERED: fentaNYL 100 MCG/2 ML INJ ONE ×2 (11:03→12:27)
[2016-09-14] MEDS ORDERED: SURGIFLO MATRIX KIT WITH THROMBIN TP ONE (11:15)
[2016-09-14] MEDS ORDERED: REMIFENTANIL HCL 1 MG VIAL ONE (11:52)
[2016-09-14] MEDS ORDERED: ROCURONIUM 50 MG/5 ML VIAL ONE ×2 (12:06)
[2016-09-14] MEDS ORDERED: DEXAMETHASONE 4 MG/ML VIAL ONE (12:18)
[2016-09-14] MEDS ORDERED: ONDANSETRON 4 MG/2 ML VIAL ONE (12:18)
[2016-09-14] MEDS ORDERED: epHEDrine SULFATE 10 MG/ML SYR ONE (12:20)
[2016-09-14] MEDS ORDERED: SUGAMMADEX SODIUM 200 MG/2 ML VIAL IVP ONE (12:21)
[2016-09-14] MEDS ORDERED: NALOXONE HCL 0.4 MG/ML INJ IVP PRN (12:37)
--- NOTE | 2016-09-14 12:37 | PDANEPAE ---
ANE Past Medical History - Cardiovascular History Hx Hypertension: Yes Hx Arrhythmias: No Hx Chest Pain: No Hx Coronary Artery / Peripheral Vascular Disease: No Hx CHF / Valvular Disease: No Hx Palpitations: No Cardiovascular History Comment: hx of htn not on meds currently. Patient reports he is now taking Amlodipine - Pulmonary History Hx COPD: No Hx Asthma/Reactive Airway Disease: No Hx Recent Upper Respiratory Infection: No Hx Oxygen in Use at Home: No Hx Sleep Apnea: Yes Sleep Apnea Screening Result - Last Documented: Positive Pulmonary History Comment: lele triggers. Patient smoked 2-3 cig/day x 5 years. stopped 1 year ago. - Neurologic History Hx Cerebrovascular Accident: No Hx Seizures: No Hx Dementia: No Neurologic History Comment: brain tumor currently. loss of vision on left side from tumor - Endocrine History Hx Diabetes: No - Renal History Hx Renal Disorders: No - Liver History Hx Hepatic Disorders: No - Neurological & Psychiatric Hx Hx Neurological and Psychiatric Disorders: No - Cancer History Hx Cancer: No - Congenital Disorder History Hx Congenital Disorders: No - GI History Hx Gastrointestinal Disorders: No - Other Health History Other Health History: none - Chronic Pain History Chronic Pain: Yes (headaches) - Surgical History Prior Surgeries: na ANE Review of Systems - Exercise capacity METS (RN): 4 METS ANE Patient History - Allergies Allergies/Adverse Reactions: No Known Allergies Allergy (Verified 09/01/16 20:36) - Home Medications Home medications: home medication list seen and reviewed - NPO status NPO Status: no food or drink >8 hours NPO Since - Liquids (Date): 09/14/16 NPO Since - Liquids (Time): 00:10 NPO Since - Solids (Date): 09/14/16 NPO Since - Solids (Time): 00:10 - Anes Hx Anes Hx: post operative cognitive dysfunction - Smoking Hx Smoking Status: Former smoker - Alcohol Use Alcohol Use: Occasionally (1 drink/week) - Family Anes Hx Family Hx Anesthesia Complications: none ANE Labs/Vital Signs - Labs Result Diagrams: 09/12/16 04:25 09/12/16 04:25 - Vital Signs Blood Pressure: 142/86 Heart Rate: 65 Respiratory Rate: 11 O2 Sat (%): 95 Height: 172.72 cm Weight: 73.4 kg ANE Physical Exam - Airway Mallampati Score: Class 2 Mouth exam: small mouth opening - Pulmonary Pulmonary: no respiratory distress - Cardiovascular Cardiovascular: regular rate and rhythym - ASA Status ASA Status: IV, E ANE Anesthesia Plan Anesthesia Plan: general endotracheal anesthesia Lines/Monitors: arterial line (anesthesia preop eval completed at 1040 09/14/16) Urgent/Emergent Case: Anes eval completed preop but documented later for safe timely pt care
--- NOTE | 2016-09-14 13:22 | POSTOPPROG ---
Post Op Note Date of Operation: 09/14/16 Surgeon: Tyree Lee Electro Tech: Arpita Gloria Anesthesiologist: Andrew Mills Anesthesia: GET(General Endotracheal) Pre-op Diagnosis: epidural hematoma Post-op Diagnosis: epidural hematoma Indication: left sided weakness Procedure: revision craniotomy and evacuation of epidural space Inf/Abcess present in the surg proc area at time of surgery?: No Depth: Organ Space EBL: 50-100 Drains: Nba Steele
[2016-09-14] MEDS ORDERED: SODIUM Cl 3% 500 ML IV SCH (13:30)
--- NOTE | 2016-09-14 13:57 | NEUSURGPN ---
Date of Surgery: 09/14/16 Post Op Day: 0 Assessment/Plan: Assessment/Plan: Assessment: 51 yo male POD0 for craniotomy revision and evacuation of EDH and POD #3 s/p right parietal craniotomy for tumor resection with motor mapping doing well this AM. ongoing left arm weakness, but improved overall left sided weakness from prior to revision surgery. Plan: SBP<140 NS 1.5% @75ml/hr for goal 145-150 decadron 4mg q6h repeat CT later today remove dressing POD#1 JPx1 to full suction. follow pathology, pending PT/OT/ST Discussed with Dr. Lee. Subjective: awake, talking, increased headaches and nausea overnight Neuro: A+Ox4 RUCKER x4 to command PERRLA, speech clear antigravity left side. left arm weakness and proprioception difficulties persist. RUE and RLE have normal strength incision cdi JPx1 - Physician Discussed Patient with : [facility] Physical Exam - Vitals, I&O, Labs I and O 09/13/16 09/14/16 09/15/16 05:59 05:59 05:59 Intake Total 1829 750 Output Total 1270 540 Balance 559 210 Weight 73.4 kg Intake: Oral (ml) 1450 750 IV Intake (ml) 379 Output: Urine (ml) 1100 400 Urinal 1100 400 Emesis (ml) 100 LIZA Drain Output (ml) 170 40 Head 170 40 Other: Output Comment Urinal per family Number of Voids Incontinence 1 Toilet 1 3 1 Urinal 1 Number of Stools Toilet 1 1 Vital Signs Temp Pulse Resp BP Pulse Ox 36.4 C 88 14 145/56 H 99 09/14/16 13:15 09/14/16 13:15 09/14/16 13:15 09/14/16 13:15 09/14/16 13:15 Laboratory Results 09/12/16 04:25 09/12/16 04:25 ICD10 Worksheet Patient Problems: Problems Problem Status Onset Brain tumor Acute
[2016-09-14 13:58] LABS: % IMMATURE GRANULYOCYTES 1.4 % (0.0-1.1); ABSOLUTE IMMATURE GRANULOCYTES 0.27 10^3/uL (0.00-0.10); ADD DIFF? NO; ADD MORPH? NO; ADD SCAN? NO; ATYPICAL LYMPHOCYTE FLAG 0 (0-99); FRAGMENT RBC FLAG 0 (0-99); HEMATOCRIT 38.7 % (40.0-51.0); HEMOGLOBIN 13.7 g/dL (13.7-17.5); LEFT SHIFT FLG 10 (0-99); LIPEMIA HEMOLYSIS FLAG 90 (0-99); MEAN CELL HEMOGLOBIN CONCENTR. 35.4 g/dL (32.4-36.7); MEAN CELL VOLUME 84.9 fL (81.5-99.8); MEAN PLATELET VOLUME 9.5 fL (8.7-11.7); PLATELET CLUMPS FLAG 20 (0-99); PLATELET COUNT 244 10^3/uL (150-400); RED BLOOD CELL COUNT 4.56 10^6/uL (4.40-6.38); RED CELL DISTRIBUTION WIDTH 13.2 % (11.5-15.2)
[2016-09-14] MEDS ORDERED: niCARdipine/NACL 200 ML IV SCH (14:00)
[2016-09-14] MEDS: DEXAMETHASONE 4 MG/ML VIAL IVP SCH ×2 (14:03→18:23)
[2016-09-14 14:08] LABS: ALANINE AMINOTRANSFERASE 24 IU/L (21-72); ALBUMIN 3.1 g/dL (3.5-5.0); ALKALINE PHOSPHATASE 53 IU/L (38-126); ANION GAP 10 mEq/L (8-16); ASPARTATE AMINOTRANSFERASE 22 IU/L (17-59); BILIRUBIN,TOTAL 0.6 mg/dL (0.1-1.4); CALCIUM 7.7 mg/dL (8.5-10.4); CARBON DIOXIDE 17 mEq/l (22-31); CHLORIDE 98 mEq/L (97-110); CREATININE 0.6 mg/dL (0.7-1.3); GLOMERULAR FILTRATION RATE > 60; GLUCOSE 142 mg/dL (70-100); POTASSIUM 5.3 mEq/L (3.5-5.2); SODIUM 125 mEq/L (134-144); TOTAL PROTEIN 5.5 g/dL (6.3-8.2)
[2016-09-14] MEDS: SODIUM CL 23.4% 308 MEQ in WATER FOR INJECTION,STERILE 1,000 ML IV SCH (14:53)
[2016-09-14] MEDS ORDERED: DEXAMETHASONE 4 MG/ML VIAL IVP SCH (18:00)
--- NOTE | 2016-09-14 22:12 | GOP ---
[f rep st] OPERATIVE REPORT DATE OF OPERATION: 09/14/2016 SURGEON: Tyree Lee MD COUNSEL: Srikanth Weiner PA-C ANESTHESIA: General endotracheal. PREOPERATIVE DIAGNOSIS: Postoperative epidural hematoma. (symptomatic). POSTOPERATIVE DIAGNOSIS: Postoperative epidural hematoma. (symptomatic). PROCEDURE PERFORMED: 1. Redo right parietal craniotomy. 2. Evacuation of postoperative epidural hematoma. FINDINGS: Large compressive epidural hematoma. SPECIMENS: There were no specimens. ESTIMATED BLOOD LOSS: 100 cc. INDICATIONS: The patient is a 51-year-old man who is postop day 3, status post right parietal crani otomy for resection of primary brain tumor with motor mapping. He had been doing extremely well aft er surgery and had some slight residual left arm weakness which was present preoperatively, but othe rwise remained completely stable. His postop imaging showed gross total resection of his tumors, bu t he did have a 2 cm epidural hematoma at the operative site. Given that this was not symptomatic, I did not feel inclined to treat it; however, last night, he developed worsening headaches after hav ing hypertension and some nausea as well as increasing left-sided weakness. A repeat scan this morn ing was essentially stable. He also has a lot of vasogenic edema around his tumor bed; however, giv en his new symptoms, I felt it would be best to wash this epidural out. DESCRIPTION OF PROCEDURE: After informed consent was obtained from the patient's family, the patien t was brought to the operating room and placed in supine position on the operating table. A formal time-out was performed, identifying the patient by name, medical record number, and date of . Preoperative antibiotics were given. The endotracheal tube was placed and general endotracheal anes thesia was smoothly induced. All appropriate lines were placed by Anesthesia. The patient's head w as turned toward the left side on a horseshoe headrest, exposing the previous craniotomy incision. The dressings were removed and the drain was removed, and the hair was washed with chlorhexidine, th e head was then prepped and draped in the normal sterile fashion. The previous sutures were removed and the incision was opened around its entire circumference. The skin and muscle flaps were retrac fritz inferiorly. The skin was quite oozy and this was controlled using bipolar electrocautery. The previous titanium plates and screws were removed and the bone flap was taken out revealing a large e pidural hematoma in the area of the surgical bed. This was carefully washed out using irrigation an d suction. At this point, the dura was fairly supple and the brain did not appear to be extremely s wollen in that area. We copiously irrigated the wound using bacitracin irrigation. All bleeders we re controlled using bipolar electrocautery and some Surgiflo. Once it was completely dry, numerous dural tack-up sutures were placed which were then placed through the craniotomy flap which was conne cted back to the skull using Synthes titanium plates and screws. The dural tack-up stitches were ti ed down tightly to oppose the dura to the bone and again the wound was copiously irrigated using arvind itracin irrigation. A subgaleal LIZA drain was placed. All bleeders from the galea were controlled u sing bipolar electrocautery. The galea was closed using interrupted 2-0 Vicryl and the skin was yasmany sed using a running locking 3-0 Prolene. The patient was then awakened in the operating room, where he was extubated and transferred back to the ICU in stable condition. There were no operative comp lications. I was scrubbed and present for the entire procedure. All sponge and needle counts were correct at the end of the case. DRAINS: Subgaleal LIZA. /[id number]/MODL
[2016-09-15] MEDS: DEXAMETHASONE 4 MG/ML VIAL IVP SCH ×4 (00:14→18:18)
[2016-09-15] MEDS: SODIUM CL 23.4% 308 MEQ in WATER FOR INJECTION,STERILE 1,000 ML IV SCH ×2 (04:55→18:18)
--- NOTE | 2016-09-15 07:44 | NEUSURGPN ---
Date of Surgery: 09/14/16 Post Op Day: 1 Assessment/Plan: Assessment: 51 yo male POD#1 for craniotomy revision and evacuation of EDH and POD #4 s/p right parietal craniotomy for tumor resection with motor mapping Plan: -doing better this AM-pt with mild ARIAS -ongoing left arm weakness, but improved overall left sided weakness from prior to revision surgery per reports -SBP<140 -NS 1.5% @75ml/hr for goal above 140 if not continuing to go up then we may need PICC and 3% -decadron 4mg q6h will start to taper in 2-3 days over 2 weeks -repeat CT yesterday looked better and no further CTs per Dr Lee unless changes occur -remove dressing tomorrow -JPx1 to full suction-still working -follow pathology, pending -MRC eval ordered with possible placement later this week -PT/OT/ST -call with any questions or concerns -Discussed with Dr. Lee. Subjective: Awake and alert. NAD. No new events overnight per RN. Mild ARIAS. No neck/chest /abd or gu complaints. No f/c/n/v/d. Objective: A+Ox3 RUCKER x4 to command PERRLA, speech clear antigravity left side (LUE/LLE). left arm weakness and proprioception difficulties persist. RUE and RLE have normal strength incision cdi JPx1 Neuro Check Frequency: q1-[address]: No - Physician Discussed Patient with : Jesus Neurosurgery Physical Exam - Vitals, I&O, Labs I and O 09/14/16 09/15/16 09/16/16 05:59 05:59 05:59 Intake Total 750 2346 Output Total 540 2555 Balance 210 -209 Weight 73.4 kg Intake: Oral (ml) 750 IV Intake (ml) 1200 IV Infused (ml) 1146 Sodium Cl 23.4% 308 meq 1111 In Water For Injection, Sterile 1,000 ml @ 75 mls /hr IV CONT CHERISE Rx#: [id number] niCARdipine/NACL 200 ml @ 35 Titrate IV CONT CHERISE Rx#: [id number] Output: Urine (ml) 400 2475 Urinal 400 2475 Emesis (ml) 100 LIZA Drain Output (ml) 40 80 Head 40 80 Other: Output Comment Urinal per family Number of Voids Incontinence 1 Toilet 3 1 Urinal 1 Number of Stools Toilet 1 Vital Signs Temp Pulse Resp BP Pulse Ox 36.9 C 67 15 122/69 H 94 09/15/16 04:00 09/15/16 06:00 09/15/16 06:00 09/15/16 06:00 09/15/16 06:00 Laboratory Results 09/14/16 13:45 09/15/16 06:25 ICD10 Worksheet Patient Problems: Problems Problem Status Onset Brain tumor Acute
[2016-09-15] MEDS ORDERED: D50W 25 GM/50 ML SYR IVP PRN (07:49)
[2016-09-15] MEDS ORDERED: D10W 250 ML PRN HYPOGLYCEMIA IV (08:00)
[2016-09-15] MEDS ORDERED: DEXAMETHASONE 2 MG TAB PO SCH (09:00)
[2016-09-15] MEDS: SENNOSIDES/DOCUSATE SODIUM TAB PO SCH ×2 (09:14→20:09)
[2016-09-15] MEDS: levETIRAcetam 500 MG TAB PO SCH ×2 (09:14→20:08)
[2016-09-15] MEDS: FAMOTIDINE 20 MG TAB PO SCH ×2 (09:14→20:08)
[2016-09-15] MEDS: HYDROCODONE/APAP 10/325 TAB PO PRN (09:15)
[2016-09-15] MEDS: INSULIN REGULAR HUMAN 100 UNIT/ML SC SCH ×3 (13:50→20:09)
--- NOTE | 2016-09-15 14:39 | PDINTPN ---
Medical Services Coordinator Progress Note Assessment/Plan: Assessment: * Brain tumor: Pathology pending. * Status post evacuation of hematoma * Hyponatremia: ? SIADH. Improving with 1.5% NS. Plan: Continue 1.5% NS. Follow Na closely. Awaiting pathology. If not continuing to improve, with add fluid restriction and 3%. NS. 09/15/16 14:43 Subjective: Feels OK. C/O ARIAS, controlled with PRN medications. Poor appetite. Objective: Vital Signs Temp Pulse Resp BP Pulse Ox 36.8 C 81 11 L 106/63 93 09/15/16 12:00 09/15/16 14:00 09/15/16 14:00 09/15/16 14:00 09/15/16 14:00 Laboratory Results 09/14/16 13:45 09/15/16 12:30 09/14/16 09/15/16 09/16/16 05:59 05:59 05:59 Intake Total 750 2346 550 Output Total 540 2555 Balance 210 -209 550 Physical Exam - Physical Exam General Appearance: alert, no apparent distress EENT: other (s/p craniotomy) Neck: normal inspection Respiratory: lungs clear, No normal breath sounds Cardiac/Chest: regular rate, rhythm, No edema Abdomen: normal bowel sounds, non-tender, soft Skin: normal color, warm/dry Extremities: non-tender, normal inspection Neuro/Psych: alert, normal mood/affect, oriented x 3 ICD10 Worksheet Patient Problems: Problems Problem Status Onset Brain tumor Acute
[2016-09-16] MEDS: DEXAMETHASONE 4 MG/ML VIAL IVP SCH ×4 (00:30→18:47)
--- NOTE | 2016-09-16 07:46 | NEUSURGPN ---
Assessment/Plan: Assessment: 51 yo male POD#2 for craniotomy revision and evacuation of EDH and POD #4 s/p right parietal craniotomy for tumor resection with motor mapping Plan: -doing better this AM- LUE/LLE weakness improving. per RN still needs 2 max assist when standing -ongoing left arm weakness, but improved overall left sided weakness from prior to revision surgery per reports -SBP<140 -NS 1.5% @75ml/hr for goal above 140- slowly trending up every Na check- keep as is for now- 131 this am -decadron 4mg q6h will start to taper in 2-3 days over 2 weeks- start taper on -repeat CT yesterday looked better and no further CTs per Dr Lee unless changes occur -Will remove dressing and LIZA later today -follow pathology, pending -[facility]C eval ordered with possible placement later this week -PT/OT/ST -call with any questions or concerns -Discussed with Dr. Lee. Subjective: Awake and alert. Feels better this morning per son. Weakness improving. Per RN still max 2 person assist when OOB and most likely will need rehab. Objective: A+Ox3 RUCKER x4 to command PERRLA, speech clear antigravity left side (LUE/LLE) with child care centre director strength improving 4/5 but left arm weakness and proprioception difficulties persist. RUE and RLE have normal strength incision cdi JPx1- output 10mL overnight - Physician Discussed Patient with Dr.: Lee Patient Seen by Dr.: Lee Neurosurgery Physical Exam - Vitals, I&O, Labs I and O 09/15/09/16/16 09/17/16 05:59 05:59 05:59 Intake Total 2346 3482 Output Total 2555 2410 Balance -209 1072 Weight 73.4 kg Intake: Oral (ml) 1460 IV Intake (ml) 1200 IV Infused (ml) 1142 Sodium Cl 23.4% 308 meq 1111 2021 In Water For Injection, Sterile 1,000 ml @ 75 mls /hr IV CONT CHERISE Rx#: [id number] niCARdipine/NACL 200 ml @ 35 Titrate IV CONT CHERISE Rx#: [id number] Output: Urine (ml) 2475 2350 Incontinence 1550 Urinal 2475 800 LIZA Drain Output (ml) 80 60 Head 80 60 Other: Number of Voids Incontinence 1 Toilet 1 Number of Stools Urinal 0 Vital Signs Temp Pulse Resp BP Pulse Ox 36.8 C 66 14 122/76 H 97 09/16/16 07:00 09/16/16 07:00 09/16/16 07:00 09/16/16 07:00 09/16/16 07:00 Laboratory Results 09/14/16 13:45 09/16/16 06:30 ICD10 Worksheet Patient Problems: Problems Problem Status Onset Brain tumor Acute
[2016-09-16] MEDS: FAMOTIDINE 20 MG TAB PO SCH ×2 (10:01→19:39)
[2016-09-16] MEDS: SENNOSIDES/DOCUSATE SODIUM TAB PO SCH ×2 (10:01→19:43)
[2016-09-16] MEDS: levETIRAcetam 500 MG TAB PO SCH ×2 (10:02→19:39)
[2016-09-16] MEDS: INSULIN REGULAR HUMAN 100 UNIT/ML SC SCH ×4 (10:05→19:43)
--- NOTE | 2016-09-16 17:22 | PDINTPN ---
Rn Discharge Progress Note Assessment/Plan: Assessment: * Brain tumor: Glioblastoma, final pathology pending. Leg strength improved. * Status post evacuation of hematoma * Hyponatremia: ? SIADH. Improving with 1.5% NS. Plan: Continue 1.5% NS. Follow Na closely. Dr. Craig to meet with patient and manager of creative services tomorrow. 09/15/16 14:43 09/16/16 17:21 Subjective: Denies pain. Feels stronger. Appetite improved. Objective: Vital Signs Temp Pulse Resp BP Pulse Ox 36.7 C 63 16 110/60 98 09/16/16 16:00 09/16/16 16:00 09/16/16 16:00 09/16/16 16:00 09/16/16 16:00 Laboratory Results 09/14/16 13:45 09/16/16 06:30 09/15/16 09/16/16 09/17/16 05:59 05:59 05:59 Intake Total 2346 3482 420 Output Total 2555 2410 1600 Balance -209 1072 -1180 Physical Exam - Physical Exam General Appearance: alert, no apparent distress EENT: other (s/p craniotomy) Neck: normal inspection Respiratory: lungs clear, normal breath sounds Cardiac/Chest: regular rate, rhythm, No edema Abdomen: normal bowel sounds, non-tender, soft Skin: normal color, warm/dry Extremities: normal inspection Neuro/Psych: alert, normal mood/affect, oriented x 3 ICD10 Worksheet Patient Problems: Problems Problem Status Onset Brain tumor Acute
[2016-09-17] MEDS: DEXAMETHASONE 4 MG/ML VIAL IVP SCH ×2 (00:08→05:26)
[2016-09-17] MEDS ORDERED: DEXAMETHASONE 2 MG TAB PO SCH (09:00)
--- NOTE | 2016-09-17 09:02 | SOAPPROG ---
SOAP Progress Note Assessment/Plan: Assessment: 51 yo M POD #6 right craniotomy for resection of tumor and POD #3 redo craniotomy for evacuation of EDH Plan: stable Na at 133, on 1.8% with free water restrictions pathology pending wean decadron PT/OT/ST [facility] eval pending scd/fritz for dvt prophylaxis please call with neuro changes discussed with Dr Lee 09/17/16 08:58 09/17/16 09:03 Subjective: patient denies headache, no N/V. Objective: Vital Signs Temp Pulse Resp BP Pulse Ox 36.8 C 62 15 144/72 H 98 09/17/16 08:00 09/17/16 08:00 09/17/16 08:00 09/17/16 08:00 09/17/16 08:00 Laboratory Results 09/14/16 13:45 09/17/16 05:10 09/16/16 09/17/16 09/18/16 05:59 05:59 05:59 Intake Total 3482 2761 Output Total 2410 3800 Balance 1072 -1039 AAOx4, +FC PERRL, EOMI, no facial droop VIDHYA x 4 + light touch C/D/I ICD10 Worksheet Patient Problems: Problems Problem Status Onset Brain tumor Acute
[2016-09-17] MEDS: INSULIN REGULAR HUMAN 100 UNIT/ML SC SCH ×4 (09:09→20:25)
[2016-09-17] MEDS: SODIUM CL 23.4% 308 MEQ in WATER FOR INJECTION,STERILE 1,000 ML IV SCH (09:11)
[2016-09-17] MEDS: levETIRAcetam 500 MG TAB PO SCH ×2 (09:12→20:21)
[2016-09-17] MEDS: SENNOSIDES/DOCUSATE SODIUM TAB PO SCH ×2 (09:12→20:20)
[2016-09-17] MEDS: FAMOTIDINE 20 MG TAB PO SCH ×2 (09:12→20:21)
[2016-09-17] MEDS: DEXAMETHASONE 4 MG TAB PO SCH (20:21)
--- NOTE | 2016-09-18 00:41 | GCON ---
[f rep st] CONSULTATION MEDICAL ONCOLOGY CONSULTATION This is a very pleasant 51-year-old [place] gentleman who a few weeks to months ago began noticing some numbness and weakness in his left arm and a right -sided headache. He came to the emergency room, and an MRI study showed multiple ring-enhancing lesions in the right supratentorial brain with surrounding vasogenic edema and mass effect with subfalcine midline shift from right to left. There was a similar abnormal appearance of the thalamus. He was taken to surgery by Dr. Lee on 09/11/2016 and underwent a right frontoparietal craniotomy. This was described as a gross total resection of the posterior right parietal and anterior right parietal intraparenchymal brain masses. I should note these are 2 separate masses. He required a reoperation on 09/14/2016 because of a large compressive epidural hematoma. Pathology showed a glioblastoma multiforme, i.e., astrocytoma grade 4. Additional testing is pending, including MGMT methylation studies. He has residual left arm weakness but is otherwise recovering well from surgery. PAST MEDICAL HISTORY: Otherwise generally unremarkable. SOCIAL HISTORY: Noncontributory. He is a former smoker but quit 5 years ago. He has worked for a [employer] in the past. PHYSICAL EXAMINATION: GENERAL: He is a very pleasant, alert gentleman. VITAL SIGNS: Blood pressure is 112/57. Remainder of his vital signs are stable. EXTREMITIES: He has left arm weakness. LUNGS: Clear. CARDIAC: Unremarkable. ABDOMEN: Benign. LABORATORY DATA: White count today is 19,000, platelets 244, hemoglobin 13.7, hematocrit 38.7. Chemistry panel shows mild hyperglycemia but is otherwise fairly unremarkable. Mild hyponatremia is noted today with a sodium of 133. IMPRESSION: I should note this patient was interviewed today with the help of a [place] class a lineman. The patient has a multicentric glioblastoma multiforme resected by Dr. Lee with residual left arm weakness. I discussed the nature of this tumor with the patient and his family. I described this is an aggressive tumor with generally a poor prognosis. Untreated survivals are usually measured in months. Standard treatment would consist of external beam radiotherapy with concomitant Temodar followed by monthly Temodar 5 out of 28 days for 6-12 months. In selective patients, this can prolong survival by months to perhaps a few years, but I also emphasized that long-term survival greater than 5 years is extremely rare in this condition. Some of the pending markers may be prognostic in terms of the degree of response patient may get to treatment. At the present time, I think he is leaning towards consideration of treatment. The plan would be to [facility] within the next couple of weeks. We would then obtain a radiation consult and attempt to get him a supply of Temodar. We would need to discuss in detail potential side effects of treatment, and we spent some time discussing that today. Our service will follow with you. /[id number]/MODL MTDD
--- NOTE | 2016-09-18 08:44 | NEUSURGPN ---
Assessment/Plan: Assessment: 51 yo M POD #7 right craniotomy for resection of tumor and POD #4 redo craniotomy for evacuation of EDH Plan: stable Na stable at 133, on 1.8% with free water restrictions. Goal >140 pathology GBM Grade IV Continue decadron taper PT/OT/ST [facility] eval pending scd/fritz for dvt prophylaxis please call with neuro changes Okay for floor status discussed with Dr Lee Subjective: Mild nausea. Denies any headaches, dizziness Objective: NAD A&Ox3 MAEx4 5/5 and equal in BUE and BLE. CN II-XII grossly intact - Physician Discussed Patient with : Jesus Neurosurgery Physical Exam - Vitals, I&O, Labs I and O 09/17/16 09/18/16 09/19/16 05:59 05:59 05:59 Intake Total 2761 2582 Output Total 3800 Balance -1039 2582 Intake: Oral (ml) 1070 800 IV Infused (ml) 1691 1782 Sodium Cl 23.4% 308 meq 1691 1782 In Water For Injection, Sterile 1,000 ml @ 75 mls /hr IV CONT CHERISE Rx#: [id number] Output: Urine (ml) 3800 Incontinence 1400 Toilet 800 Urinal 1600 Other: Intake Quantity Yes Sufficient Number of Voids Incontinence 2 2 Urinal 2 5 Number of Stools Toilet 1 Vital Signs Temp Pulse Resp BP Pulse Ox 36.6 C 61 14 116/68 96 09/18/16 08:25 09/18/16 08:25 09/18/16 08:25 09/18/16 08:25 09/18/16 08:25 Laboratory Results 09/14/16 13:45 09/18/16 04:43 ICD10 Worksheet Patient Problems: Problems Problem Status Onset Brain tumor Acute
[2016-09-18] MEDS ORDERED: SODIUM CHLORIDE 1,000 MG TAB PO SCH ×3 (09:15→18:00)
[2016-09-18] MEDS: levETIRAcetam 500 MG TAB PO SCH ×2 (09:54→21:00)
[2016-09-18] MEDS: INSULIN REGULAR HUMAN 100 UNIT/ML SC SCH ×4 (09:54→21:21)
[2016-09-18] MEDS: DEXAMETHASONE 4 MG TAB PO SCH ×2 (09:54→21:00)
[2016-09-18] MEDS: FAMOTIDINE 20 MG TAB PO SCH ×2 (09:54→21:00)
[2016-09-18] MEDS: SENNOSIDES/DOCUSATE SODIUM TAB PO SCH ×2 (09:55→21:00)
--- NOTE | 2016-09-18 15:27 | PDGENHP ---
History and Physical - Chief Complaint acute paresis - History of Present Illness consultation history and physical Consulting service: Neurosurgery Reason for consultation: Hyponatremia HPI: 51-year-old male presenting with acute paresthesia located in his left upper extremity with associated left upper extremity paresthesias, headache located in his right head, nausea. Paresthesia is characterized as mild in his left lower extremity and more severe in his left upper extremity. Seems to be exacerbated with use. He was noted to have new brain mass on 09/01 and he was discharged home with steroids and antiepileptics with a scheduled craniotomy on 09/11. His postop course was complicated by an extradural hematoma evacuated on 09/14. reports that he has been eating and drinking normally postoperatively with the exception of brief periods of NPO status. He has been urinating regularly, moving his bowels, reports minimal pain. History Information - Allergies/Home Medication List Allergies/Adverse Reactions: No Known Allergies Allergy (Verified 09/01/16 20:36) I have personally reviewed and updated: family history, medical history, social history, surgical history - Past Medical History hypertension ( Recently on antihypertensives, recently discontinued) Additional medical history: patient has reportedly been healthy prior to diagnosis of his glioblastoma - Surgical History Additional surgical history: 09/11/2016 right-sided craniotomy. 09/14/2016 extradural hematoma evacuation - Family History Additional family history: no family history of GBM - Social History Smoking Status: Former smoker Alcohol Use: Occasionally (1 drink/week) Drug Use: None Additional social history: originally from [facility], has moved here recently Review of Systems ROS: 10pt was reviewed & negative except for what was stated in HPI & below Neurological: Reports: headache, paresthesia, weakness ( left upper extremity) Physical Exam Temp Pulse Resp BP Pulse Ox 36.6 C 61 16 105/55 L 100 09/18/16 08:25 09/18/16 12:00 09/18/16 12:00 09/18/16 12:00 09/18/16 12:00 O2 (L/minute) 2 Constitutional: no apparent distress, appears nourished, not in pain Eyes: PERRL, anicteric sclera, EOMI Ears, Nose, Mouth, Throat: moist mucous membranes, hearing normal, ears appear normal, no oral mucosal ulcers Cardiovascular: regular rate and rhythym, no murmur, rub, or gallop, No edema Respiratory: no respiratory distress, no rales or rhonchi, clear to auscultation Gastrointestinal: normoactive bowel sounds, soft, non-tender abdomen, no palpable masses Skin: other ( no erythema or induration around the surgical site on his scalp) Neurologic: AAOx3, sensation intact bilaterally, weakness ( left upper extremity 3/5 motor strength, left lower extremity 4/5 motor strength, right upper and right lower extremity 5/5 motor strength), CN II-XII Intact, No facial droop Psychiatric: interacting appropriately, not anxious, not encephalopathic, thought process linear Lab Data & Imaging Review 09/14/16 13:45 09/18/16 04:43 WBC 19.25 10^3/uL (3.80-9.50) H 09/14/16 13:45 RBC 4.56 10^6/uL (4.40-6.38) 09/14/16 13:45 Hgb 13.7 g/dL (13.7-17.5) 09/14/16 13:45 Hct 38.7 % (40.0-51.0) L 09/14/16 13:45 MCV 84.9 fL (81.5-99.8) 09/14/16 13:45 MCH 30.0 pg (27.9-34.1) 09/14/16 13:45 MCHC 35.4 g/dL (32.4-36.7) 09/14/16 13:45 RDW 13.2 % (11.5-15.2) 09/14/16 13:45 Plt Count 244 10^3/uL (150-400) 09/14/16 13:45 MPV 9.5 fL (8.7-11.7) 09/14/16 13:45 Neut % (Auto) 90.1 % (39.3-74.2) H 09/14/16 13:45 Lymph % (Auto) 4.7 % (15.0-45.0) L 09/14/16 13:45 Crook % (Auto) 3.6 % (4.5-13.0) L 09/14/16 13:45 Eos % (Auto) 0.0 % (0.6-7.6) L 09/14/16 13:45 Baso % (Auto) 0.2 % (0.3-1.7) L 09/14/16 13:45 Nucleat RBC Rel Count 0.0 % (0.0-0.2) 09/14/16 13:45 Absolute Neuts (auto) 17.33 10^3/uL (1.70-6.50) H 09/14/16 13:45 Absolute Lymphs (auto) 0.91 10^3/uL (1.00-3.00) L 09/14/16 13:45 Absolute Monos (auto) 0.70 10^3/uL (0.30-0.80) 09/14/16 13:45 Absolute Eos (auto) 0.00 10^3/uL (0.03-0.40) L 09/14/16 13:45 Absolute Basos (auto) 0.04 10^3/uL (0.02-0.10) 09/14/16 13:45 Absolute Nucleated RBC 0.00 10^3/uL (0-0.01) 09/14/16 13:45 Immature Gran % 1.4 % (0.0-1.1) H 09/14/16 13:45 Seg Neutrophils % 87 % 09/12/16 04:25 Band Neutrophils % 3 % 09/12/16 04:25 Lymphocytes % 3 % 09/12/16 04:25 Monocytes % 5 % 09/12/16 04:25 Metamyelocytes % 2 % 09/12/16 04:25 Immature Gran # 0.27 10^3/uL (0.00-0.10) H 09/14/16 13:45 Absolute Seg Neuts 17.93 10^/uL (1.70-6.50) H 09/12/16 04:25 Absolute Band Neuts 0.62 10^3/uL (0.00-0.70) 09/12/16 04:25 Absolute Lymphocytes 0.62 10^3/uL (1.00-3.00) L 09/12/16 04:25 Absolute Monocytes 1.03 10^3/uL (0.30-0.80) H 09/12/16 04:25 Absolute Metamyelocyte 0.41 10^3/mL (0.00-0.00) H 09/12/16 04:25 Nucleated RBCs 1 /100 WBC (0-0) H 09/12/16 04:25 RBC/WBC/PLT Morphology NORMAL (NORMAL) 09/12/16 04:25 Platelet Estimate ADEQUATE (ADEQ) 09/12/16 04:25 Puncture Site ARTERIAL LINE 09/11/16 16:30 Patient Temperature 37.0 DEGREES 09/11/16 16:30 pCO2 35 mmHg (34-38) 09/11/16 16:30 pO2 127 mmHg (65-75) H 09/11/16 16:30 Total CO2 21 mEq/L (23-27) L 09/11/16 16:30 ABG pH 7.37 (7.35-7.45) 09/11/16 16:30 ABG PO2/FiO2 Ratio 254 RATIO 09/11/16 16:30 ABG HCO3 20 mEq/L (22-26) L 09/11/16 16:30 ABG O2 Saturation 98 % (92-95) H 09/11/16 16:30 ABG Base Excess -4.5 mEq/L (-2.5-2.5) L 09/11/16 16:30 ABG Hemoglobin 15.8 gm/dL (14.5-17.3) 09/11/16 16:30 O2 Concentration % 50 % (0-100) 09/11/16 16:30 POC Sodium 125 mEq/L (137-146) L 09/11/16 16:30 POC Potassium 4.8 mEq/L (3.3-5.0) 09/11/16 16:30 Sodium 133 mEq/L (134-144) L 09/18/16 04:43 Potassium 5.3 mEq/L (3.5-5.2) H 09/14/16 13:45 Chloride 98 mEq/L (97-110) 09/14/16 13:45 Carbon Dioxide 17 mEq/l (22-31) L 09/14/16 13:45 Anion Gap 10 mEq/L (8-16) 09/14/16 13:45 BUN 19 mg/dL (7-23) 09/14/16 13:45 Creatinine 0.6 mg/dL (0.7-1.3) L 09/14/16 13:45 Estimated GFR > 60 09/14/16 13:45 Glucose 142 mg/dL (70-100) H 09/14/16 13:45 POC Glucose 222 mg/dL (70-100) H 09/18/16 11:21 Serum Osmolality 295 mosmo/kg (280-297) 09/11/16 17:15 Calcium 7.7 mg/dL (8.5-10.4) L 09/14/16 13:45 Ionized Calcium 1.03 MMOL/L (1.12-1.30) L 09/11/16 16:30 Total Bilirubin 0.6 mg/dL (0.1-1.4) 09/14/16 13:45 AST 22 IU/L (17-59) 09/14/16 13:45 ALT 24 IU/L (21-72) 09/14/16 13:45 Alkaline Phosphatase 53 IU/L (38-126) 09/14/16 13:45 Total Protein 5.5 g/dL (6.3-8.2) L 09/14/16 13:45 Albumin 3.1 g/dL (3.5-5.0) L 09/14/16 13:45 Assessment & Plan Assessment: 51-year-old male presents with new diagnosis grade 4 glioblastoma multiform a complicated by acute hyponatremia Plan: 1. Hyponatremia. Acute, new problem this provider, further workup indicated. 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 Myriam Mann from 09/01/16, no indication of hyponatremia at that time - patient's serum sodium level has risen from 125-133 over the span of approximately 1 week with interventions including low-dose salt tabs, hypertonic saline - discussed with Dr. Lyons from Nephrology, we both agree that our initial attempts should be to fluid restrict at 1 L per day, increase the salt tabs to 2 g 3 times daily, discontinue the hypertonic saline, and monitor serum sodium level closely every 6 hours to gauge effect -will also check the urine sodium level as well as urine and serum osmolalities - obtaining serum sodium level of 140 a week out from surgery may not provide additional benefit to the patient but will defer this decision to the primary neurosurgery service and will continue the conversation daily 2. Hypertension. Chronic, recent acute spikes most likely secondary to recent surgery and extradural hematoma - patient has been titrated off of nicardipine, will discontinue - goal systolic blood pressure is less than 140, current systolic blood pressure is 105 - hydralazine and labetalol will remain p.r.n. for systolic blood pressures greater than 140, but if blood pressure is consistently elevated, would recommend initiating an oral agent 3. Hyperglycemia. Patient's fasting blood glucose level 166 this morning in the setting of steroid burst, most likely secondary to steroids and no underlying diabetes - will get hemoglobin A1c to determine whether the patient has diabetes - this may be a moot point if the patient's survival is estimated to be months if left untreated and at the maximum a couple years 4. Glioblastoma multiforme. MRI demonstrating ring-enhancing lesions with central necrosis, right craniotomy performed on 09/11 - neurosurgery remains the primary service - pain is minimal Hospital Medicine will continue to consult the patient's daily care, please contact Dr. Denilson Torres if there are further concerns.
[2016-09-18] MEDS: SODIUM CHLORIDE 1,000 MG TAB PO SCH (17:24)
[2016-09-19] MEDS: FAMOTIDINE 20 MG TAB PO SCH ×2 (08:16→21:35)
[2016-09-19] MEDS: SENNOSIDES/DOCUSATE SODIUM TAB PO SCH ×2 (08:16→21:35)
[2016-09-19] MEDS: INSULIN REGULAR HUMAN 100 UNIT/ML SC SCH ×4 (08:16→21:45)
[2016-09-19] MEDS: SODIUM CHLORIDE 1,000 MG TAB PO SCH ×3 (08:17→17:48)
[2016-09-19] MEDS: levETIRAcetam 500 MG TAB PO SCH ×2 (08:17→21:42)
[2016-09-19] MEDS: DEXAMETHASONE 4 MG TAB PO SCH ×2 (08:17→21:45)
--- NOTE | 2016-09-19 08:50 | NEUSURGPN ---
Assessment/Plan: Assessment: 51 yo M POD #8 right craniotomy for resection of tumor and POD #5 redo craniotomy for evacuation of EDH Plan: stable Na stable at 134-136, Improved since yesterday, Goal >140 Appreciate medicine recommendation and consultation. pathology GBM Grade IV, oncology has met and discussed with patient and family Continue decadron taper PT/OT/ST scd/fritz for dvt prophylaxis please call with neuro changes Okay for floor status Rehab placement when bed available. discussed with Dr Lee Subjective: Denies any headache, dizziness, nausea Objective: NAD A&Ox3. MAEx4 5/5 in RUE and a 5-/5 in LUE and LLE. Incision c/d/i - Physician Discussed Patient with : [facility] Physical Exam - Vitals, I&O, Labs I and O 09/18/16 09/19/16 09/20/16 05:59 05:59 05:59 Intake Total 2582 1240 Output Total 1500 Balance 2582 -260 Intake: Oral (ml) 800 1240 IV Infused (ml) 1782 Sodium Cl 23.4% 308 meq 1782 In Water For Injection, Sterile 1,000 ml @ 75 mls /hr IV CONT CHERISE Rx#: [id number] Output: Urine (ml) 1500 Urinal 1500 Other: Intake Quantity Yes Yes Sufficient Number of Voids Incontinence 2 Urinal 5 1 Vital Signs Temp Pulse Resp BP Pulse Ox 36.8 C 73 18 112/69 95 09/19/16 08:00 09/19/16 08:00 09/19/16 08:00 09/19/16 08:00 09/19/16 08:00 Laboratory Results 09/14/16 13:45 09/19/16 04:50 ICD10 Worksheet Patient Problems: Problems Problem Status Onset Brain tumor Acute
[2016-09-19 12:55] LABS: ANION GAP 10 mEq/L (8-16); CALCIUM 8.4 mg/dL (8.5-10.4); CARBON DIOXIDE 20 mEq/l (22-31); CHLORIDE 104 mEq/L (97-110); CREATININE 0.7 mg/dL (0.7-1.3); GLOMERULAR FILTRATION RATE > 60; GLUCOSE 256 mg/dL (70-100); SODIUM 134 mEq/L (134-144)
--- NOTE | 2016-09-19 14:01 | HOSPPROG ---
Hospitalist Progress Note Assessment/Plan: Assessment: 51-year-old male presents with new diagnosis grade 4 glioblastoma multiform a complicated by acute hyponatremia Plan: 1. Hyponatremia. 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 Lyons, we agree pt has responded well to 1L fluid restriction (can be liberalized to 1.5L/day if patient is suffering from thirst) and salt tabs, as well as stopping 1.8% saline -counseled patient/son today regarding hyponatremic symptoms (generalized paresis and encephalopathy), and the need for ED evaluation if these occur in outpatient setting -his noon Na is 134, and we can continue w/ current mgmt, recheck level in AM, and, if in mid-130s, he is safe for discharge tomorrow AM w/ outpt serum sodium checks at his NSGY appointments -if patient becomes increasingly hyponatremic as outpatient, [facility] -patient should be discharged on 2g tid salt tabs, 1L/day fluid restriction, explained to son/patient today 2. Hypertension. Chronic, recent acute spikes most likely secondary to recent surgery and extradural hematoma -no current indication for oral anti-HTN agent 3. Hyperglycemia. 2/2 steroids, will get A1c prior to DC 4. Glioblastoma multiforme. MRI demonstrating ring-enhancing lesions with central necrosis, right craniotomy performed on 09/11 - neurosurgery remains the primary service - pain is minimal Hospital Medicine will continue to consult the patient's daily care, please contact Dr. Denilson Torres if there are further concerns. He will be safe to discharge from a medical standpoint tomorrow AM. NSGY remains primary service and will be coordinating discharge. Subjective: Patient has not had any pain, he is working with physical therapy to ambulate Objective: Vital Signs Temp Pulse Resp BP Pulse Ox 36.8 C 73 18 112/69 95 09/19/16 08:00 09/19/16 08:00 09/19/16 08:00 09/19/16 08:00 09/19/16 08:00 Laboratory Results 09/14/16 13:45 09/19/16 12:15 09/18/16 09/19/16 09/20/16 05:59 05:59 05:59 Intake Total 2582 1240 Output Total 1500 Balance 2582 -260 - Pending Discharge Pending Discharge Within 24 Hours: Yes Pending Discharge Date: 09/20/16 Pending Discharge Time: 11:00 - Physical Exam Constitutional: no apparent distress, appears nourished, not in pain, No uncomfortable Cardiovascular: regular rate and rhythym, no murmur, rub, or gallop Respiratory: no respiratory distress, no rales or rhonchi, clear to auscultation Gastrointestinal: normoactive bowel sounds, soft, non-tender abdomen, no palpable masses Neurologic: sensation intact bilaterally, other (3/5 motor strength left upper extremity, 4/5 motor strength left lower extremity, 5/5 motor strength right upper and right lower extremity), No facial droop Psychiatric: interacting appropriately, not anxious, not encephalopathic, thought process linear ICD10 Worksheet Patient Problems: Problems Problem Status Onset Brain tumor Acute
[2016-09-19 16:04] LABS: HEMOGLOBIN A1C 7.2 % (4.0-6.0)
--- NOTE | 2016-09-19 16:39 | SOAPPROG ---
[facility] Progress Note Assessment/Plan: Assessment: GBM, status post resection Plan:to rehab, onc appt post rehab 09/19/16 16:38 Objective: Vital Signs Temp Pulse Resp BP Pulse Ox 98.2 F 73 18 112/69 95 09/19/16 08:00 09/19/16 08:00 09/19/16 08:00 09/19/16 08:00 09/19/16 08:00 Laboratory Results 09/14/16 13:45 09/19/16 12:15 09/18/16 09/19/16 09/20/16 05:59 05:59 05:59 Intake Total 2582 1240 Output Total 1500 Balance 2582 -260 ICD10 Worksheet Patient Problems: Problems Problem Status Onset Brain tumor Acute
[2016-09-19 21:50] VITALS: RESP 15
[2016-09-20 05:39] LABS: ANION GAP 7 mEq/L (8-16); CALCIUM 8.2 mg/dL (8.5-10.4); CARBON DIOXIDE 24 mEq/l (22-31); CHLORIDE 105 mEq/L (97-110); CREATININE 0.7 mg/dL (0.7-1.3); GLOMERULAR FILTRATION RATE > 60; GLUCOSE 114 mg/dL (70-100); POTASSIUM 4.5 mEq/L (3.5-5.2); SODIUM 136 mEq/L (134-144)
[2016-09-20] MEDS ORDERED: metFORMIN HCL 500 MG TAB PO SCH (08:13)
[2016-09-20 08:17] VITALS: BP 142/76; PULSE 64; TEMP 98.1; O2SAT 97
[2016-09-20] MEDS: levETIRAcetam 500 MG TAB PO SCH (09:19)
[2016-09-20] MEDS: SODIUM CHLORIDE 1,000 MG TAB PO SCH ×2 (09:20→13:37)
[2016-09-20] MEDS: SENNOSIDES/DOCUSATE SODIUM TAB PO SCH (09:20)
--- NOTE | 2016-09-20 09:20 | NEUSURGPN ---
Assessment/Plan: Assessment: 51 yo M POD #9 right craniotomy for resection of tumor and POD #6 redo craniotomy for evacuation of EDH Plan: stable Na stable at 134-136,on salt tabs, Goal >140 Appreciate medicine recommendation and consultation. pathology GBM Grade IV, oncology has met and discussed with patient and family Continue decadron taper PT/OT/ST scd/fritz for dvt prophylaxis please call with neuro changes Okay for floor status Per notes, no ins coverage for rehab and plan is for patient to DC home with family. Cleared per IM. Rx in chart and DC to home with family later today. discussed with Dr Lee Subjective: Pt resting in bed, states he is feeling good Objective: AAOx3 NAD VSS MAEx4 Incision cdi sutures in place +LT Urinary Catheter in Place: No - Physician Discussed Patient with : [facility] Neurosurgery Physical Exam - Vitals, I&O, Labs I and O 09/19/16 09/20/16 09/21/16 05:59 05:59 05:59 Intake Total 1240 850 Output Total 1500 700 500 Balance -260 150 -500 Intake: Oral (ml) 1240 850 Output: Urine (ml) 1500 700 500 Urinal 1500 700 500 Other: Intake Quantity Yes Yes Sufficient Number of Voids Incontinence 1 Urinal 1 Number of Stools Toilet 1 Vital Signs Temp Pulse Resp BP Pulse Ox 36.7 C 64 15 142/76 H 97 09/20/16 08:00 09/20/16 08:00 09/19/16 21:49 09/20/16 08:00 09/20/16 08:00 Laboratory Results 09/14/16 13:45 09/20/16 05:15 ICD10 Worksheet Patient Problems: Problems Problem Status Onset Brain tumor Acute
[2016-09-20] MEDS: FAMOTIDINE 20 MG TAB PO SCH (09:21)
[2016-09-20] MEDS: DEXAMETHASONE 4 MG TAB PO SCH (09:21)
[2016-09-20] MEDS: INSULIN REGULAR HUMAN 100 UNIT/ML SC SCH ×2 (09:21→12:35)
--- NOTE | 2016-09-20 13:39 | HOSPPROG ---
Hospitalist Progress Note Assessment/Plan: Assessment: 51-year-old male presents with new diagnosis grade 4 glioblastoma multiform a complicated by acute hyponatremia Plan: 1. Hyponatremia. 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 Winnie Lyons at [facility] -patient should be discharged on 2g tid salt tabs, 1L/day fluid restriction, explained to son/patient today 2. Hypertension. Chronic, recent acute spikes most likely secondary to recent surgery and extradural hematoma -no current indication for oral anti-HTN agent 3. DM2 w/ hyperglycemia. A1c 7.2%, counseled patient and son regarding diabetes diagnosis and need to treat w/ metformin given his steroid-exacerbated hyperglycemia (to avoid DKA) -d/w Madelyn Paulino, recommend metformin 500mg bid, Rx written in chart -recommend outpatient medical f/u at [facility] for mgmt 4. Glioblastoma multiforme. MRI demonstrating ring-enhancing lesions with central necrosis, right craniotomy performed on 09/11 - neurosurgery remains the primary service - pain is minimal Safe for discharge from medical perspective. Subjective: patient's son is requesting completion of travel verification for the patient's daughter, we have provided them with 2 signed copies and modification was made to date of , they have requested new copies, we have counseled them are doing her best to adhere to their request, counseled the patient extensively regarding diabetes management initiation new medication as well as the necessity of outpatient follow up at [facility] Objective: Vital Signs Temp Pulse Resp BP Pulse Ox 36.7 C 64 15 142/76 H 97 09/20/16 08:00 09/20/16 08:00 09/19/16 21:49 09/20/16 08:00 09/20/16 08:00 Laboratory Results 09/14/16 13:45 09/20/16 05:15 09/19/16 09/20/16 09/21/16 05:59 05:59 05:59 Intake Total 1240 850 Output Total 1500 700 500 Balance -260 150 -500 - Time Spent With Patient Time Spent with Patient: greater than 35 minutes Time Spent with Patient: Greater than 35 minutes spent on this patients care, greater than 50% of time spent counseling, educating, and coordinating care regarding the above mentioned plan. - Physical Exam Constitutional: no apparent distress, appears nourished, not in pain Neurologic: AAOx3 Psychiatric: interacting appropriately, not anxious, not encephalopathic, thought process linear ICD10 Worksheet Patient Problems: Problems Problem Status Onset Brain tumor Acute
[2016-09-20] MEDS ORDERED: DEXAMETHASONE 2 MG TAB PO SCH (21:00)
[2016-09-23] MEDS ORDERED: DEXAMETHASONE 2 MG TAB PO SCH (21:00)
[2016-09-27] MEDS ORDERED: DEXAMETHASONE 2 MG TAB PO SCH (09:00)
[2016-09-30] MEDS ORDERED: DEXAMETHASONE 0.5 MG TAB PO SCH (09:00)
== END 2016-09-20 14:20 | disposition home or self-care (01) | DRG 26 ==
LOC: UNDOADMIN 11:50 → F3N 11:50 → FIMAGING 11:50 → F2N 11:51 → EDSTATUS 14:00 → F2N 19:35
PROVIDERS: ADMIT Neurological Surgery; ATTEND Neurological Surgery
PROC: 00B00ZX Excision of Brain, Open Approach, Diagnostic (ICD-10-PCS; principal; 2016-09-11 14:00)
PROC: 8E09XBZ Computer Assisted Procedure of Head and Neck Region (ICD-10-PCS; principal; 2016-09-11 14:00)
PROC: 00C30ZZ Extirpation of Matter from Intracranial Epidural Space, Open Approach (ICD-10-PCS; 2016-09-14)
DX: C71.9 Malignant neoplasm of brain, unspecified (principal); G97.61 Postprocedural hematoma of a nervous system organ or structure following a nervous system procedure; E87.1 Hypo-osmolality and hyponatremia; I10 Essential (primary) hypertension; R73.9 Hyperglycemia, unspecified; Z87.891 Personal history of nicotine dependence
CPT/HCPCS: 92507-GN; 92523-GN; 92610-GN; 97110-GP; 97112-GO; 97112-GP; 97116-GP; 97162-GP; 97166-GO; 97530-GO; 97530-GP; 97535-GO; A9585; C1713; J0360; J0690; J1100; J1815; J1953; J2250; J2405; J2704; J3010; J3490

== ENCOUNTER → 2016-12-23 | Outpatient (CLI) | payer OTHER ==
[~2016-12-23] MED LIST changes: -BUPIVACAINE/EPI 0.25% 30 ML SDV ONE; +GADOBUTROL 10 ML VIAL IVP ONE; -GENTAMICIN SULFATE 80 MG/2 ML VIAL ONE; -THROMBIN (BOVINE) 5,000 UNIT VIAL TP ONE
== END ==
LOC: FIMAGING 15:40
PROVIDERS: ATTEND Internal Medicine Hematology & Oncology
DX: C71.9 Malignant neoplasm of brain, unspecified (principal)
CPT/HCPCS: A9585